=== PATIENT | male | born 1950 | race Two or more races ===

== ENCOUNTER 2016-10-29 01:10 | Inpatient (IN) | payer MEDICAID ==
[2016-10-29 01:50] VITALS: BP 116/72
[2016-10-29] MEDS: Sodium Chloride 0.9% 1,000 ML IV SCH ×2 (02:20→18:17)
[2016-10-29 06:25] LABS: HEMATOCRIT 34.5 % (39.0-49.0); HEMOGLOBIN 11.2 gm/dL (13.2-17.3); MEAN CELL VOLUME 83.7 fl (80-99); MEAN CORPUSCULAR HEMOGLOBIN 27.2 pg (26.0-30.0); MEAN CORPUSCULAR HGB CONC 32.5 pg (28.0-36.0); MEAN PLATELET VOLUME 8.2 fl; PLATELET COUNT 386 Th/cmm (150-400); RED BLOOD COUNT 4.12 Mil/cmm (4.30-5.70); RED CELL DISTRIBUTION WIDTH 16.4 % (11.5-20.0); WHITE BLOOD COUNT 10.7 Th/cmm (4.8-10.8)
[2016-10-29 07:14] LABS: ALB/GLOB RATIO 0.5 (1.0-1.8); ANION GAP 8.1 (7.0-16.0); BILIRUBIN,TOTAL 0.3 mg/dL (0.3-1.0); BUN/CREATININE RATIO 16.1; CALCIUM SERUM 10.2 mg/dL (8.6-10.3); CARBON DIOXIDE 23.1 mEq/L (21.0-31.0); CREATININE - SERUM 3.1 mg/dL (0.7-1.3); POTASSIUM SERUM 5.2 mEq/L (3.5-5.1)
[2016-10-29] MEDS ORDERED: Pneumococcal Vaccine 0.5 mL Vial IM ONE (09:00)
[2016-10-29] MEDS ORDERED: Influenza Vaccine 0.5 mL Syr IM ONE (09:00)
[2016-10-29 09:17] LABS: BAND NEUTROPHILE 4 % (0-10); NEUTROPHILS 89 % (40-80); PLATELET ESTIMATE ADEQUATE (NORMAL); PLATELET MORPHOLOGY NORMAL (NORMAL); TOTAL CELLS COUNTED 100
--- NOTE | 2016-10-29 11:59 | Diagnostic Imaging Report ---
CHEST X-RAY: AP view INDICATION: Pleural effusion COMPARISON: None FINDINGS: Large left effusion is seen with left lung infiltrates. Small right effusion is seen with ill-defined right upper lobe infiltrates. Cardiomegaly is noted. The osseous structures are intact. IMPRESSION: Large left effusion and left lung infiltrates and additional ill-defined right upper lung zone infiltrates. Small right effusion is also noted. Please correlate clinically as neoplastic process cannot be excluded. Short-term follow-up CT examination is recommended for further assessment. Cardiomegaly.
[2016-10-29] MEDS: INSULIN ASPART SLIDING SCALE 100 UNITS/ML UNIT SUBQ SCH ×3 (12:45→21:48)
--- NOTE | 2016-10-29 14:38 | History & Physical ---
CHIEF COMPLAINT: Shortness of breath. HISTORY OF PRESENT ILLNESS: This is the case of a 66-year-old male who came to the Emergency Room secondary to general weakness for 1 month and shortness of breath. The patient referred that he already lost 50 pounds and feel so week, reason why he came to Emergency Room for evaluation and treatment. The patient was went to [facility] in [place] and CT of the thorax was done and was found that the patient had pleural fusion with the mass in the left lung. The patient was transferred to his hospital for continued treatment. PAST MEDICAL HISTORY: The patient has past medical history of diabetes mellitus and hypertension. SOCIAL HISTORY: The patient referred he is tobacco and alcohol user. ALLERGIES: No known allergies. PAST SURGICAL HISTORY: None. FAMILY HISTORY: Noncontributory. REVIEW OF SYSTEMS: LUNGS: The patient referred shortness of breath. HEART: The patient denies chest pain. ABDOMEN: Unremarkable. EXTREMITIES: Unremarkable. NEUROMUSCULAR: The patient referred increased progressive general weakness. PHYSICAL EXAMINATION: GENERAL: Does reveal fairly nourished and developed male, awake, alert, oriented with some distress secondary to shortness of breath. HEENT: Head is normocephalic and atraumatic. EYES: Pupils are reactive to light. Nose: No evidence of nasal obstruction. Ears: No evidence of any discharge. Mouth: Fairly ____. LUNGS: No breathing sounds in the ____ left hemithorax. Normal breathing sounds in the right hemithorax. HEART: Regular rhythm. ABDOMEN: Soft, nontender. Bowel sounds present. EXTREMITIES: No edema. NEUROLOGICAL: The patient is awake, alert and oriented. Nerves 2-12 grossly intact. IMPRESSION: 1. Pleural effusion. 2. Pulmonary mass. 3. Diabetes mellitus. 4. Acute renal failure. 5. Hypertension. PLAN: 1. The patient will be admitted in the medical surgical floor. 2. IV normal saline. 3. Regular diet. 4. Consult with Dr. Higgins, Dr. Bañuelos and Dr. Covarrubias. 5. CBC and CMP at a.m. JOB# [id number]
[2016-10-29] MEDS: Albuterol Nebulizer 2.5mg/3mL HHN SCH ×3 (16:12→22:25)
[2016-10-29] MEDS: Cefepime 1 GM in Sodium Chloride 0.9% 100 ML IV SCH (18:13)
--- NOTE | 2016-10-29 18:33 | Admit Criteria Form ---
Admit Criteria Forms - Admit Criteria Diagnosis: PLEURAL EFFUSION Clinical Indications for Admission to Inpatient Care (Place 'X' for any and all applicable criteria): Admission is indicated for ANY ONE of the following (1)(2)(3): [ ]I. Pneumonia-related effusion requiring drainage as indicated by ANY ONE of the following [A]: [ ]a) Large pleural effusion (symptomatic or greater than one-half of hemithorax) [ ]b) Loculated effusion [ ]c) Pleural thickening [ ]d) Pleural fluid analysis results, including ANY ONE of the following: [ ]i) Positive Gram stain or culture for bacteria [ ]ii) Pus [ ]iii) pH less than 7.20 [X]II. Inpatient admission required rather than observation care (Also use Pleural Effusion: Observation Care criteria as appropriate) because of ANY ONE of the following: [ ]a) Hemodynamic instability that is severe or persistent [ ]b) Respiratory distress that is severe or persistent [ ]c) Complication of drainage (e.g., pneumothorax) that requires inpatient care [X]d) Etiology that requires inpatient care (e.g., pulmonary embolism , trauma) [ ]e) Severe pain requiring acute inpatient management [ ]f) Supplemental O2 or respiration drug for over 24 hrs that are performable only in an inpatient setting [ ]g) Chest tube placement with active evacuation (e.g., suction, drainage) [ ]h) Pulmonary artery catheter monitoring [ ]i) Epidural analgesia (8) [ ]j) Continuous IV infusion of anticoagulation, platelet inhibitor, vasoactive, or antiarrhythmic medication. [X]k) Other condition, treatment or monitoring requiring inpatient admission [ ]l) Immediate inpatient surgery [ ]III. Hemothorax [ ]IV. Empyema [ ]V. Pleural effusion with concomitant pneumothorax [ ]. Recurrent or malignant pleural effusion requiring pleurodesis (4) Extended stay beyond goal length of stay may be needed for (27)(28): [ ]a) Empyema or complicated parapneumonic effusion (24)(29) [ ]b) Malignant pleural effusion (4) [ ]c) Pleural effusion due to trauma or perforated esophagus [ ]d) Pleural effusion due to pulmonary embolism (30) [ ]e) Clinically significant re-expansion pulmonary edema [ ]f) Hemothorax [ ]g) Renal failure [ ]h) Trapped lung (e.g., benign or malignant thickened pleura preventing lung re-expansion) (31) [ ]i) Underlying etiology necessitates ongoing inpatient care (e.g., pneumonia, heart failure, malignancy) [ ]j) Complications of thoracentesis, thoracostomy tube, or pleural cath. placement The original [facility] content created by [employer] has been revised. The portions of the content which have been revised are identified through the use of italic text or in bold, and [facility] has neither reviewed nor approved the modified material. All other unmodified content is copyright [employer]. Please see references footnoted in the original [facility] edition 2016 Admit Criteria Met?: Yes
--- NOTE | 2016-10-29 23:21 | Consultation ---
HEMATOLOGY/ONCOLOGY CONSULTATION REFERRING PHYSICIAN: Dr. Sorto. REASON FOR CONSULTATION: Lung mass. HISTORY OF PRESENT ILLNESS: The patient is a 66-year-old male who has been feeling progressively weak with loss of balance and significant weight loss of 50 pounds in the past few months. The patient had an x-ray of the chest, which was normal, suspicious of neoplasm, therefore, I was asked to evaluate. The chest x-ray reported large left effusion, left lung infiltrates, and right upper lung infiltrates, small right effusion. SOCIAL HISTORY: The patient never and no children. Lives with sister. He is a smoker for more than 40 years. PAST MEDICAL HISTORY: Hypertension, diabetes, chronic kidney disease, and chronic lung disease. SURGICAL HISTORY: Hernia surgery. REVIEW OF SYSTEMS: Weight loss, no hemoptysis. PHYSICAL EXAMINATION: GENERAL: He is awake, chronically ill looking. VITAL SIGNS: Stable. HEENT: Atraumatic. NECK: No lymphadenopathy. CHEST: Scattered rhonchi. Decreased air entry on the left. ABDOMEN: Soft. EXTREMITIES: No edema. NERVOUS SYSTEM: Nonfocal. LABORATORY DATA: White count , hemoglobin 11.2, and platelets 386,000. Liver function is normal. Creatinine 3.1. Chest x-ray as mentioned above. ASSESSMENT: 1. Abnormalities on chest x-ray arising suspicion of neoplasm. I will obtain CT scan of the chest. 2. Diabetes, hypertension, chronic kidney disease, and chronic obstructive pulmonary disease. Her other consultants discussed with sister bedside. Further management will be addressed accordingly. Thank you, Dr. Sorto, for the opportunity to participate in the care of this interesting case for you. JOB# [id number]
[2016-10-30] MEDS: Albuterol Nebulizer 2.5mg/3mL HHN SCH ×6 (02:46→23:26)
[2016-10-30] MEDS: Cefepime 1 GM in Sodium Chloride 0.9% 100 ML IV SCH ×2 (03:34→14:59)
--- NOTE | 2016-10-30 06:09 | Consultation ---
ATTENDING PHYSICIAN: Adis Sorto M.D. BREAKER ENGINEER: Jacob Covarrubias M.D. REASON FOR CONSULTATION: Worsening kidney function and electrolyte imbalance and fluid management. HISTORY OF PRESENT ILLNESS: This is a 66-year-old male with past medical history of chronic kidney disease who was transferred from [place] to [facility] for further management. One month prior to admission, the patient developed weakness, easy fatigability as well as lack of energy. One week prior to admission, he gradually developed dyspnea on exertion. This was associated with dry cough, but no congestion. A few hours prior to admission, his respiratory status worsened after walking several steps. He then proceeded to [facility]. Chest x-ray revealed left lung mass with pleural effusion. CT scan of the chest showed left upper lobe consolidation/mass, 1.5 cm right apical nodule, [id number] left effusion, emphysema, as well as 1 centimeter precarinal lymph node. He has history of CKD diagnosed about 3 years ago per family. His BUN/creatinine today were 50/3.1. PAST MEDICAL HISTORY: 1. Chronic kidney disease. 2. Type 2 diabetes mellitus. 3. Essential hypertension. 4. Dyslipidemia. PAST SURGICAL HISTORY: Status post inguinal herniorrhaphy. CURRENT MEDICATIONS: Albuterol, cefepime, hydrocodone/APAP, aspart, pneumococcal vaccine and zolpidem. ALLERGIES: No known drug allergies. SOCIAL HISTORY: He did have a history of smoking approximately 1 pack a day for 30 years. He just quit about 5 days ago. He drinks alcoholic beverages on special events. 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 He has been exposed to several chemicals as well as solvents. He has not worn his facemask during the time that he was handling chemicals. FAMILY HISTORY: Significant for diabetes as well as breast cancer in 4 of his sisters. REVIEW OF SYSTEMS: CONSTITUTIONAL: He did complain of generalized weakness with a decline in his appetite. He had no fever and no chills. HEENT: No headaches and no dizziness. Wears glasses due to poor vision. Hearing acuity is also diminished. CARDIORESPIRATORY: He complained of dry cough. He also has dyspnea on exertion. No chest pain or palpitations. No diaphoresis. GASTROINTESTINAL: He had no nausea and vomiting, abdominal pain or cramping, hematemesis, melena, hematochezia and no diarrhea. ENDOCRINE: Has a history of diabetes. No thyroid abnormalities. He also has dyslipidemia. MUSCULOSKELETAL: Multiple joint arthritis. GENITOURINARY: History of chronic kidney disease. At this point, he does not have any dysuria or hematuria, no retention. HEMATOLOGIC: He has mild anemia. NEUROPSYCH: No syncopal episode or seizure activity. No diabetic neuropathy. PHYSICAL EXAMINATION: GENERAL: The patient is alert and comfortable. VITAL SIGNS: Blood pressure is 110/70, pulse 84 and temperature 97.3 degrees. SKIN: Good turgor, warm, no rash and no jaundice appreciated. HEENT: Head: Normocephalic and atraumatic. Eyes: Extraocular muscles intact. Pupils equal, round, reactive to light and accommodates, anicteric sclerae, pink conjunctivae. Nose: Midline nasal septum. Mouth: Moist mucosa with adequate dentition. NECK: Supple. No adenopathy, no thyromegaly and no bruits. Trachea palpated in the midline. CHEST AND CVS: S1 and S2. No rub or murmur nor gallop appreciated. Point of maximal impulse is in fifth intercostal space, left midclavicular line. No abdominal or femoral bruits appreciated. LUNGS: Equal expansion. No use of accessory muscles. No supraclavicular retractions, markedly diminished breath sounds, left side of the lung, no wheezes appreciated. ABDOMEN: Mildly globular and soft. Positive for bowel sounds. No bruits either diastolic or systolic. RECTAL: Lax sphincter tone. GENITOURINARY: Normal appearing male genitalia. MUSCULOSKELETAL: No effusions present in his joints with adequate range of motion. EXTREMITIES: No evidence of any edema or cyanosis nor clubbing with palpable femoral, popliteal and dorsalis pedis pulses. NEUROLOGIC: The patient is alert and verbal. Motor is 5/5. Cranial nerves 3-12 intact. Sensory: Intact. LABORATORY DATA: Sodium 132, potassium 5.2, chloride 106, bicarb 23, BUN 50, creatinine 3.5, glucose 210, calcium 10.2, albumin 2.3 and TSH 0.39. Hemoglobin A1c 8.5%. White count 10.7, hemoglobin 11.2, hematocrit 34.5, platelets 386 and polys 89%. IMPRESSION: 1. Chronic kidney disease. GFR of 21.7 mL per minute, stage IV. 2. Chronic kidney disease is secondary to diabetic polyneuropathy with some hypertensive nephrosclerosis. 3. Left upper lung mass/effusion/weight loss/cough/dyspnea on exertion/smoker with possibility of lung CA. 4. Type 2 diabetes mellitus. 5. Essential hypertension. 6. Dyslipidemia. PLAN: 1. Urinalysis, urine sodium, eosinophils and creatinine. 2. Renal ultrasound. 3. Follow up electrolytes. 4. Further workup of pulmonary. I have discussed my plans with family at bedside. Thank you Dr. Sorto for this consult. I will follow the patient closely with you. JOB# [id number]
[2016-10-30] MEDS: INSULIN ASPART SLIDING SCALE 100 UNITS/ML UNIT SUBQ SCH ×4 (06:38→21:22)
[2016-10-30 06:41] LABS: HEMOGLOBIN 10.1 gm/dL (13.2-17.3); MEAN CELL VOLUME 82.3 fl (80-99); MEAN CORPUSCULAR HEMOGLOBIN 27.7 pg (26.0-30.0); MEAN CORPUSCULAR HGB CONC 33.7 pg (28.0-36.0); MEAN PLATELET VOLUME 8.5 fl; PLATELET COUNT 361 Th/cmm (150-400); RED BLOOD COUNT 3.64 Mil/cmm (4.30-5.70); RED CELL DISTRIBUTION WIDTH 16.3 % (11.5-20.0)
[2016-10-30 07:08] LABS: ALB/GLOB RATIO 0.5 (1.0-1.8); ANION GAP 9.1 (7.0-16.0); BILIRUBIN,TOTAL 0.2 mg/dL (0.3-1.0); BUN/CREATININE RATIO 21.1; CALCIUM SERUM 8.7 mg/dL (8.6-10.3); CARBON DIOXIDE 22.8 mEq/L (21.0-31.0); CREATININE - SERUM 3.7 mg/dL (0.7-1.3); POTASSIUM SERUM 4.9 mEq/L (3.5-5.1)
[2016-10-30 07:21] LABS: HEMATOCRIT 29.9 % (39.0-49.0); WHITE BLOOD COUNT 15.5 Th/cmm (4.8-10.8)
--- NOTE | 2016-10-30 09:00 | General Progress Note ---
Subjective - Review of Systems Service Date: 10/30/16 Subjective: I am hungry Objective - Results Result Diagrams: 10/30/16 05:46 10/30/16 05:46 Recent Labs: Laboratory Last Values WBC 15.5 Th/cmm (4.8-10.8) H D 10/30/16 05:46 RBC 3.64 Mil/cmm (4.30-5.70) L 10/30/16 05:46 Hgb 10.1 gm/dL (13.2-17.3) L 10/30/16 05:46 Hct 29.9 % (39.0-49.0) L D 10/30/16 05:46 MCV 82.3 fl (80-99) 10/30/16 05:46 MCH 27.7 pg (26.0-30.0) 10/30/16 05:46 MCHC Differential 33.7 pg (28.0-36.0) 10/30/16 05:46 RDW 16.3 % (11.5-20.0) 10/30/16 05:46 Plt Count 361 Th/cmm (150-400) 10/30/16 05:46 MPV 8.5 fl 10/30/16 05:46 Band Neutrophils % 4 % (0-10) 10/29/16 06:00 Neutrophils (Manual) 89 % (40-80) H 10/29/16 06:00 Lymphocytes 7 % (20-50) L 10/29/16 06:00 Platelet Estimate ADEQUATE (NORMAL) 10/29/16 06:00 Platelet Morphology NORMAL (NORMAL) 10/29/16 06:00 RBC Morph Micro Appear NORMAL (NORMAL) 10/29/16 06:00 Sodium 132 mEq/L (136-145) L 10/30/16 05:46 Potassium 4.9 mEq/L (3.5-5.1) 10/30/16 05:46 Chloride 105 mEq/L (98-107) 10/30/16 05:46 Carbon Dioxide 22.8 mEq/L (21.0-31.0) 10/30/16 05:46 Anion Gap 9.1 (7.0-16.0) 10/30/16 05:46 BUN 78 mg/dL (7-25) H 10/30/16 05:46 Creatinine 3.7 mg/dL (0.7-1.3) H 10/30/16 05:46 Est GFR ( Amer) 21.4 ml/min (>90) 10/30/16 05:46 Est GFR (Non-Af Amer) 17.7 ml/min 10/30/16 05:46 BUN/Creatinine Ratio 21.1 10/30/16 05:46 Glucose 204 mg/dL (70-105) H 10/30/16 05:46 POC Glucose 232 MG/DL (70 - 105) H 10/30/16 05:58 Hemoglobin A1c % 8.5 % (4.0-6.0) H 10/29/16 06:00 Calcium 8.7 mg/dL (8.6-10.3) 10/30/16 05:46 Total Bilirubin 0.2 mg/dL (0.3-1.0) L 10/30/16 05:46 AST 10 U/L (13-39) L 10/30/16 05:46 ALT 10 U/L (7-52) 10/30/16 05:46 Alkaline Phosphatase 59 U/L (34-104) 10/30/16 05:46 Total Protein 6.2 gm/dL (6.0-8.3) 10/30/16 05:46 Albumin 2.0 gm/dL (4.2-5.5) L 10/30/16 05:46 Globulin 4.2 gm/dL 10/30/16 05:46 Albumin/Globulin Ratio 0.5 (1.0-1.8) L 10/30/16 05:46 TSH 0.39 uIU/ml (0.34-5.60) 10/29/16 06:00 - Physical Exam Vitals and I&O: Vital Signs Temp 98.4 F 10/30/16 04:00 Pulse 88 10/30/16 07:40 Resp 20 10/30/16 07:40 BP 95/57 10/30/16 04:00 Pulse Ox 94 10/30/16 07:40 Intake & Output 10/29/16 10/30/16 10/30/16 18:59 06:59 18:59 Intake Total 2500 460 Output Total 200 Balance 2500 260 Intake: Intake, IV Amount 1000 100 Cefepime 1 gm In Sodium 100 Chloride 0.9% 100 ml @ 100 mls/hr IV Q12H [facility] Rx #:[id number] Sodium Chloride 0.9% 1, 1000 000 ml @ 75 mls/hr IV . [id number] [facility] Rx#:[id number] Oral 1500 360 Output: Urine 200 Other: # Voids 4 1 Active Medications: Current Medications Acetaminophen/Hydrocodone Bitart ([place] 5mg/325mg) 1 tab PO Q6H PRN PRN Reason: Pain (Mild) Stop: 12/28/16 02:02 Albuterol Sulfate (Albuterol 2.5mg/3ml Neb Ud) 2.5 mg HHN Q4HRT [facility] Stop: 12/28/16 14:59 Last Admin: 10/30/16 07:40 Dose: 2.5 mg Sodium Chloride (Nacl 0.9%) 1,000 mls @ 75 mls/hr IV .[id number] [facility] Stop: 12/28/16 02:14 Last Admin: 10/29/16 18:17 Dose: 75 mls/hr Cefepime HCl 1 gm/ Sodium (Chloride) 100 mls @ 100 mls/hr IV Q12H [facility] Stop: 12/28/16 14:59 Last Admin: 10/30/16 03:34 Dose: 100 mls/hr Insulin Aspart (Novolog Insulin Sliding Scale) 0 units SUBQ ACHS BETHANY PRN Reason: Protocol Stop: 12/28/16 11:29 Last Admin: 10/30/16 06:38 Dose: 4 units Miscellaneous (Clinical Monitoring) 1 ea MC PRN PRN PRN Reason: RENAL DOSING Stop: 12/28/16 10:50 Zolpidem Tartrate (Ambien) 5 mg PO HS [facility] Stop: 12/28/16 20:59 Last Admin: 10/29/16 21:48 Dose: 5 mg General: Alert, Oriented x3, Cooperative, No acute distress HEENT: Atraumatic Neck: Supple Cardiovascular: Regular rate Lungs: Other (No air movement in left hemithorax.) Abdomen: Bowel sounds, Soft Extremities: Other (No edema) Neurological: Normal gait Skin: Other (Warm and dry) Psych/Mental Status: Mental status NL Assessment/Plan - Assessment Assessment: Patient is awake, alert, calm. CT guided biopsy was order, procedure is not done in this hospital. I will discuss case with Pulmonology and oncology. Today WBC went up. - Plan Plan: Due to the pleural effusion and WBC elevation, patient will be cover with Ceftriaxone. Awaiting Ct guided. biopsy
--- NOTE | 2016-10-30 09:09 | Consultation ---
Patient of Dr. Sorto. Thank you very much, Dr. Sorto for this consultation. HISTORY OF PRESENT ILLNESS: This is a 66-year-old male who presented to [facility] with cough, congestion, shortness of breath, and was found to have pneumonia and possible lung mass. The patient was transferred here for further care. The patient has not been to see for evaluation for 6 months according to the family. He has some renal problem that is being followed by renal doctor but otherwise he has diabetes and the staff has not been taking care of. He is a smoker and continues to smoke since age of 14 or 17. The patient appears to be doing a little bit better, he had less cough, less congestion. PAST MEDICAL HISTORY: As above. SOCIAL HISTORY: As above. PHYSICAL EXAMINATION: GENERAL: Awake, alert, not in acute distress. VITAL SIGNS: Temperature is 97.9, pulse 82, respiration 18, blood pressure 105/60, saturation 92% to 95% on 2 liters oxygen. HEENT: Atraumatic and normocephalic. Pupils are equal and reactive to light and accommodation. Ears, nose and throat normal. NECK: Supple. CHEST: There are rhonchi bilaterally, fair air entry. No wheezing. HEART: Regular Rate and rhythm. ABDOMEN: Soft, nontender. EXTREMITIES: No edema. DIAGNOSTIC DATA: He has got a CT from [place] showing left upper lobe consolidation of the mass and some pleural effusion as well. LABORATORY DATA: WBC is 10.7, hemoglobin 9.2, platelets are 386. Sodium is 132, potassium 5.2, BUN is 50, creatinine 3.1. IMPRESSION: This is a 66-year-old male with; 1. Chronic obstructive pulmonary disease exacerbation. 2. Pneumonia. 3. Possible malignancy, especially with the weight loss and the history of smoking, potential lung malignancy with metastasis. PLAN: 1. IV antibiotics. 2. Nebulized treatment. 3. IV Solu-Medrol. 4. We will have Radiology here, review the CT from [place] and decide if a CT-guided biopsy is technically possible. Case discussed in detail with the patient's family at bedside and I will follow the patient with you. The patient also will need a renal evaluation as well. JOB# [id number] [facility]
--- NOTE | 2016-10-30 09:16 | Diagnostic Imaging Report ---
CHEST X-RAY: AP view INDICATION: Shortness of breath COMPARISON: Chest x-ray 10/29/2016 FINDINGS: There is opacification of the majority left hemithorax with left lung infiltrates and additional right lower lung zone infiltrates. Ill defined right upper lobe infiltrates are seen with small right effusion. IMPRESSION: Persistent opacification of the majority of the left hemithorax which is due to combination of left effusion and left lung infiltrates. Additional right lung infiltrates are seen including ill-defined right upper lung zone infiltrates. Neoplastic process cannot be excluded. Recommend short-term follow-up including follow-up CT examination of the chest.
[2016-10-30 10:11] LABS: BAND NEUTROPHILE 2 % (0-10); NEUTROPHILS 87 % (40-80); PLATELET ESTIMATE ADEQUATE (NORMAL); PLATELET MORPHOLOGY NORMAL (NORMAL); TOTAL CELLS COUNTED 100
[2016-10-30] MEDS: Sodium Chloride 0.9% 1,000 ML IV SCH (10:56)
--- NOTE | 2016-10-30 13:11 | General Progress Note ---
Subjective - Review of Systems Service Date: 10/30/16 Subjective: mod sob. denied pain Objective - Results Result Diagrams: 10/30/16 05:46 10/30/16 05:46 Recent Labs: Laboratory Last Values WBC 15.5 Th/cmm (4.8-10.8) H D 10/30/16 05:46 RBC 3.64 Mil/cmm (4.30-5.70) L 10/30/16 05:46 Hgb 10.1 gm/dL (13.2-17.3) L 10/30/16 05:46 Hct 29.9 % (39.0-49.0) L D 10/30/16 05:46 MCV 82.3 fl (80-99) 10/30/16 05:46 MCH 27.7 pg (26.0-30.0) 10/30/16 05:46 MCHC Differential 33.7 pg (28.0-36.0) 10/30/16 05:46 RDW 16.3 % (11.5-20.0) 10/30/16 05:46 Plt Count 361 Th/cmm (150-400) 10/30/16 05:46 MPV 8.5 fl 10/30/16 05:46 Band Neutrophils % 2 % (0-10) 10/30/16 05:46 Neutrophils (Manual) 87 % (40-80) H 10/30/16 05:46 Lymphocytes 7 % (20-50) L 10/30/16 05:46 Monocytes 4 % (2-10) 10/30/16 05:46 Platelet Estimate ADEQUATE (NORMAL) 10/30/16 05:46 Platelet Morphology NORMAL (NORMAL) 10/30/16 05:46 RBC Morph Micro Appear NORMAL (NORMAL) 10/30/16 05:46 Sodium 132 mEq/L (136-145) L 10/30/16 05:46 Potassium 4.9 mEq/L (3.5-5.1) 10/30/16 05:46 Chloride 105 mEq/L (98-107) 10/30/16 05:46 Carbon Dioxide 22.8 mEq/L (21.0-31.0) 10/30/16 05:46 Anion Gap 9.1 (7.0-16.0) 10/30/16 05:46 BUN 78 mg/dL (7-25) H 10/30/16 05:46 Creatinine 3.7 mg/dL (0.7-1.3) H 10/30/16 05:46 Est GFR ( Amer) 21.4 ml/min (>90) 10/30/16 05:46 Est GFR (Non-Af Amer) 17.7 ml/min 10/30/16 05:46 BUN/Creatinine Ratio 21.1 10/30/16 05:46 Glucose 204 mg/dL (70-105) H 10/30/16 05:46 POC Glucose 262 MG/DL (70 - 105) H 10/30/16 11:04 Hemoglobin A1c % 8.5 % (4.0-6.0) H 10/29/16 06:00 Calcium 8.7 mg/dL (8.6-10.3) 10/30/16 05:46 Total Bilirubin 0.2 mg/dL (0.3-1.0) L 10/30/16 05:46 AST 10 U/L (13-39) L 10/30/16 05:46 ALT 10 U/L (7-52) 10/30/16 05:46 Alkaline Phosphatase 59 U/L (34-104) 10/30/16 05:46 Total Protein 6.2 gm/dL (6.0-8.3) 10/30/16 05:46 Albumin 2.0 gm/dL (4.2-5.5) L 10/30/16 05:46 Globulin 4.2 gm/dL 10/30/16 05:46 Albumin/Globulin Ratio 0.5 (1.0-1.8) L 10/30/16 05:46 TSH 0.39 uIU/ml (0.34-5.60) 10/29/16 06:00 - Physical Exam Vitals and I&O: Vital Signs Temp 98.6 F 10/30/16 12:30 Pulse 101 10/30/16 12:30 Resp 20 10/30/16 12:30 BP 103/59 10/30/16 12:30 Pulse Ox 95 10/30/16 12:30 Intake & Output 10/29/16 10/30/16 10/30/16 18:59 06:59 18:59 Intake Total 2500 460 1000 Output Total 200 Balance 2500 260 1000 Intake: Intake, IV Amount [phone] Cefepime 1 gm In Sodium 100 Chloride 0.9% 100 ml @ 100 mls/hr IV Q12H [facility] Rx #:[id number] Sodium Chloride 0.9% 1, 1000 1000 000 ml @ 75 mls/hr IV . [id number] [facility] Rx#:[id number] Oral 1500 360 Output: Urine 200 Other: # Voids 4 1 Active Medications: Current Medications Acetaminophen/Hydrocodone Bitart ([place] 5mg/325mg) 1 tab PO Q6H PRN PRN Reason: Pain (Mild) Stop: 12/28/16 02:02 Albuterol Sulfate (Albuterol 2.5mg/3ml Neb Ud) 2.5 mg HHN Q4HRT [facility] Stop: 12/28/16 14:59 Last Admin: 10/30/16 11:18 Dose: 2.5 mg Sodium Chloride (Nacl 0.9%) 1,000 mls @ 75 mls/hr IV .[id number] [facility] Stop: 12/28/16 02:14 Last Admin: 10/30/16 10:56 Dose: 75 mls/hr Cefepime HCl 1 gm/ Sodium (Chloride) 100 mls @ 100 mls/hr IV Q12H [facility] Stop: 12/28/16 14:59 Last Admin: 10/30/16 03:34 Dose: 100 mls/hr Insulin Aspart (Novolog Insulin Sliding Scale) 0 units SUBQ ACHS [facility] PRN Reason: Protocol Stop: 12/28/16 11:29 Last Admin: 10/30/16 11:40 Dose: 6 units Miscellaneous (Clinical Monitoring) 1 ea MC PRN PRN PRN Reason: RENAL DOSING Stop: 12/28/16 10:50 Zolpidem Tartrate (Ambien) 5 mg PO HS [facility] Stop: 12/28/16 20:59 Last Admin: 10/29/16 21:48 Dose: 5 mg General: Alert, Moderate distress HEENT: Atraumatic, Mucous membr. moist/pink Neck: Supple, +2 carotid pulse wo bruit Cardiovascular: Regular rate, Normal S1, Normal S2 Lungs: Other (decrease BS left lung field) Abdomen: Bowel sounds, Soft Extremities: no Edema Neurological: Sensation intact Skin: no Rash Psych/Mental Status: Mental status NL Assessment/Plan - Assessment Assessment: ckd DAVE lung mass type 2 dm w/ ckd ess htn w/ ckd dyslipidemia - Plan Plan: BUN/CR up to 78/3.7 continue gentle hydration awaiting urine workup ct scan pnd f/u electrolytes, cbc
[2016-10-31] MEDS: Albuterol Nebulizer 2.5mg/3mL HHN SCH ×6 (03:01→23:16)
[2016-10-31] MEDS: Cefepime 1 GM in Sodium Chloride 0.9% 100 ML IV SCH (03:36)
[2016-10-31] MEDS: Sodium Chloride 0.9% 1,000 ML IV SCH ×2 (03:37→22:03)
[2016-10-31 06:36] LABS: HEMATOCRIT 29.3 % (39.0-49.0); HEMOGLOBIN 9.7 gm/dL (13.2-17.3)
[2016-10-31] MEDS: INSULIN ASPART SLIDING SCALE 100 UNITS/ML UNIT SUBQ SCH ×4 (06:37→21:51)
[2016-10-31 06:46] LABS: ANION GAP 13.2 (7.0-16.0); BUN/CREATININE RATIO 22.2; CALCIUM SERUM 8.6 mg/dL (8.6-10.3); CARBON DIOXIDE 19.4 mEq/L (21.0-31.0); CREATININE - SERUM 3.2 mg/dL (0.7-1.3); POTASSIUM SERUM 4.6 mEq/L (3.5-5.1)
[2016-10-31 06:54] LABS: MEAN CELL VOLUME 83.1 fl (80-99); MEAN CORPUSCULAR HEMOGLOBIN 27.4 pg (26.0-30.0); MEAN PLATELET VOLUME 8.6 fl; PLATELET COUNT 294 Th/cmm (150-400); RED BLOOD COUNT 3.53 Mil/cmm (4.30-5.70); RED CELL DISTRIBUTION WIDTH 16.6 % (11.5-20.0)
[2016-10-31 07:05] LABS: WHITE BLOOD COUNT 11.5 Th/cmm (4.8-10.8)
--- NOTE | 2016-10-31 08:19 | General Progress Note ---
Subjective - Review of Systems Service Date: 10/31/16 Subjective: I am better Objective - Results Result Diagrams: 10/31/16 05:34 10/31/16 05:34 Recent Labs: Laboratory Last Values WBC 11.5 Th/cmm (4.8-10.8) H D 10/31/16 05:34 RBC 3.53 Mil/cmm (4.30-5.70) L 10/31/16 05:34 Hgb 9.7 gm/dL (13.2-17.3) L 10/31/16 05:34 Hct 29.3 % (39.0-49.0) L 10/31/16 05:34 MCV 83.1 fl (80-99) 10/31/16 05:34 MCH 27.4 pg (26.0-30.0) 10/31/16 05:34 MCHC Differential 33.0 pg (28.0-36.0) 10/31/16 05:34 RDW 16.6 % (11.5-20.0) 10/31/16 05:34 Plt Count 294 Th/cmm (150-400) 10/31/16 05:34 MPV 8.6 fl 10/31/16 05:34 Band Neutrophils % 2 % (0-10) 10/30/16 05:46 Neutrophils (Manual) 87 % (40-80) H 10/30/16 05:46 Lymphocytes 7 % (20-50) L 10/30/16 05:46 Monocytes 4 % (2-10) 10/30/16 05:46 Platelet Estimate ADEQUATE (NORMAL) 10/30/16 05:46 Platelet Morphology NORMAL (NORMAL) 10/30/16 05:46 RBC Morph Micro Appear NORMAL (NORMAL) 10/30/16 05:46 Sodium 135 mEq/L (136-145) L 10/31/16 05:34 Potassium 4.6 mEq/L (3.5-5.1) 10/31/16 05:34 Chloride 107 mEq/L (98-107) 10/31/16 05:34 Carbon Dioxide 19.4 mEq/L (21.0-31.0) L 10/31/16 05:34 Anion Gap 13.2 (7.0-16.0) 10/31/16 05:34 BUN 71 mg/dL (7-25) H 10/31/16 05:34 Creatinine 3.2 mg/dL (0.7-1.3) H 10/31/16 05:34 Est GFR ( Amer) 25.3 ml/min (>90) 10/31/16 05:34 Est GFR (Non-Af Amer) 20.9 ml/min 10/31/16 05:34 BUN/Creatinine Ratio 22.2 10/31/16 05:34 Glucose 221 mg/dL (70-105) H 10/31/16 05:34 POC Glucose 242 MG/DL (70 - 105) H 10/31/16 06:34 Hemoglobin A1c % 8.5 % (4.0-6.0) H 10/29/16 06:00 Calcium 8.6 mg/dL (8.6-10.3) 10/31/16 05:34 Total Bilirubin 0.2 mg/dL (0.3-1.0) L 10/30/16 05:46 AST 10 U/L (13-39) L 10/30/16 05:46 ALT 10 U/L (7-52) 10/30/16 05:46 Alkaline Phosphatase 59 U/L (34-104) 10/30/16 05:46 Total Protein 6.2 gm/dL (6.0-8.3) 10/30/16 05:46 Albumin 2.0 gm/dL (4.2-5.5) L 10/30/16 05:46 Globulin 4.2 gm/dL 10/30/16 05:46 Albumin/Globulin Ratio 0.5 (1.0-1.8) L 10/30/16 05:46 TSH 0.39 uIU/ml (0.34-5.60) 10/29/16 06:00 - Physical Exam Vitals and I&O: Vital Signs Temp 97.4 F 10/31/16 07:52 Pulse 58 10/31/16 07:52 Resp 17 10/31/16 07:52 BP 118/63 10/31/16 07:52 Pulse Ox 95 10/31/16 07:52 Intake & Output 10/30/16 10/31/16 10/31/16 18:59 06:59 18:59 Intake Total 2500 1340 Output Total 1200 800 Balance 1300 540 Intake: Intake, IV Amount 1000 1100 Cefepime 1 gm In Sodium 100 Chloride 0.9% 100 ml @ 100 mls/hr IV Q12H [facility] Rx #:[id number] Sodium Chloride 0.9% 1, 1000 1000 000 ml @ 75 mls/hr IV . [id number] [facility] Rx#:[id number] Oral 1500 240 Output: Urine 1200 800 Other: # Bowel Movements 1 Active Medications: Current Medications Acetaminophen/Hydrocodone Bitart ([place] 5mg/325mg) 1 tab PO Q6H PRN PRN Reason: Pain (Mild) Stop: 12/28/16 02:02 Albuterol Sulfate (Albuterol 2.5mg/3ml Neb Ud) 2.5 mg HHN Q4HRT [facility] Stop: 12/28/16 14:59 Last Admin: 10/31/16 03:01 Dose: 2.5 mg Docusate Sodium (Colace) 100 mg PO BID [facility] Stop: 12/30/16 08:59 Sodium Chloride (Nacl 0.9%) 1,000 mls @ 75 mls/hr IV .[id number] [facility] Stop: 12/28/16 02:14 Last Admin: 10/31/16 03:37 Dose: 75 mls/hr Cefepime HCl 1 gm/ Sodium (Chloride) 100 mls @ 100 mls/hr IV Q12H [facility] Stop: 12/28/16 14:59 Last Admin: 10/31/16 03:36 Dose: 100 mls/hr Insulin Aspart (Novolog Insulin Sliding Scale) 0 units SUBQ ACHS [facility] PRN Reason: Protocol Stop: 12/28/16 11:29 Last Admin: 10/31/16 06:37 Dose: 4 units Miscellaneous (Clinical Monitoring) 1 ea MC PRN PRN PRN Reason: RENAL DOSING Stop: 12/28/16 10:50 Zolpidem Tartrate (Ambien) 5 mg PO HS [facility] Stop: 12/28/16 20:59 Last Admin: 10/30/16 21:22 Dose: 5 mg General: Alert, Oriented x3, Cooperative, No acute distress HEENT: Atraumatic Neck: Supple Cardiovascular: Regular rate Lungs: Other (No air movement in left hemithorax) Abdomen: Bowel sounds, Soft Extremities: Other (No edema) Neurological: Normal gait Skin: Other (Warm and dry) Psych/Mental Status: Mental status NL Assessment/Plan - Assessment Assessment: Patient is awake, alert, calm. US guiede Thoracentesis was order, Today WBC improved. Case discussed with Pulmonology and family - Plan Plan: US guided thoracocentesis will be done today. Will continue same management.
[2016-10-31 08:20] LABS: INR 1.15 (0.5-1.4); PROTHROMBIN TIME (TEST) 11.5 SECONDS (9.5-11.5)
[2016-10-31 10:32] LABS: EOSINOPHIL 0 % (0-5); NEUTROPHILS 92 % (40-80); PLATELET ESTIMATE ADEQUATE (NORMAL); PLATELET MORPHOLOGY NORMAL (NORMAL); TOTAL CELLS COUNTED 100
--- NOTE | 2016-10-31 14:27 | General Progress Note ---
Subjective - Review of Systems Service Date: 10/31/16 Subjective: more comfortable, denied pain Objective - Results Result Diagrams: 10/31/16 05:34 10/31/16 05:34 Recent Labs: Laboratory Last Values WBC 11.5 Th/cmm (4.8-10.8) H D 10/31/16 05:34 RBC 3.53 Mil/cmm (4.30-5.70) L 10/31/16 05:34 Hgb 9.7 gm/dL (13.2-17.3) L 10/31/16 05:34 Hct 29.3 % (39.0-49.0) L 10/31/16 05:34 MCV 83.1 fl (80-99) 10/31/16 05:34 MCH 27.4 pg (26.0-30.0) 10/31/16 05:34 MCHC Differential 33.0 pg (28.0-36.0) 10/31/16 05:34 RDW 16.6 % (11.5-20.0) 10/31/16 05:34 Plt Count 294 Th/cmm (150-400) 10/31/16 05:34 MPV 8.6 fl 10/31/16 05:34 Band Neutrophils % 2 % (0-10) 10/30/16 05:46 Neutrophils (Manual) 92 % (40-80) H 10/31/16 05:34 Lymphocytes 6 % (20-50) L 10/31/16 05:34 Monocytes 2 % (2-10) 10/31/16 05:34 Eosinophils 0 % (0-5) 10/31/16 05:34 Platelet Estimate ADEQUATE (NORMAL) 10/31/16 05:34 Platelet Morphology NORMAL (NORMAL) 10/31/16 05:34 RBC Morph Micro Appear NORMAL (NORMAL) 10/31/16 05:34 PT 11.5 SECONDS (9.5-11.5) 10/31/16 05:34 INR 1.15 (0.5-1.4) 10/31/16 05:34 Sodium 135 mEq/L (136-145) L 10/31/16 05:34 Potassium 4.6 mEq/L (3.5-5.1) 10/31/16 05:34 Chloride 107 mEq/L (98-107) 10/31/16 05:34 Carbon Dioxide 19.4 mEq/L (21.0-31.0) L 10/31/16 05:34 Anion Gap 13.2 (7.0-16.0) 10/31/16 05:34 BUN 71 mg/dL (7-25) H 10/31/16 05:34 Creatinine 3.2 mg/dL (0.7-1.3) H 10/31/16 05:34 Est GFR ( Amer) 25.3 ml/min (>90) 10/31/16 05:34 Est GFR (Non-Af Amer) 20.9 ml/min 10/31/16 05:34 BUN/Creatinine Ratio 22.2 10/31/16 05:34 Glucose 221 mg/dL (70-105) H 10/31/16 05:34 POC Glucose 123 MG/DL (70 - 105) H 10/31/16 11:25 Hemoglobin A1c % 8.5 % (4.0-6.0) H 10/29/16 06:00 Calcium 8.6 mg/dL (8.6-10.3) 10/31/16 05:34 Total Bilirubin 0.2 mg/dL (0.3-1.0) L 10/30/16 05:46 AST 10 U/L (13-39) L 10/30/16 05:46 ALT 10 U/L (7-52) 10/30/16 05:46 Alkaline Phosphatase 59 U/L (34-104) 10/30/16 05:46 Total Protein 6.2 gm/dL (6.0-8.3) 10/30/16 05:46 Albumin 2.0 gm/dL (4.2-5.5) L 10/30/16 05:46 Globulin 4.2 gm/dL 10/30/16 05:46 Albumin/Globulin Ratio 0.5 (1.0-1.8) L 10/30/16 05:46 TSH 0.39 uIU/ml (0.34-5.60) 10/29/16 06:00 - Physical Exam Vitals and I&O: Vital Signs Temp 98.6 F 10/31/16 12:34 Pulse 92 10/31/16 12:34 Resp 18 10/31/16 12:34 BP 110/63 10/31/16 12:34 Pulse Ox 96 10/31/16 12:34 Intake & Output 10/30/16 10/31/16 10/31/16 18:59 06:59 18:59 Intake Total 2500 1340 Output Total 1200 800 Balance 1300 540 Intake: Intake, IV Amount 1000 1100 Cefepime 1 gm In Sodium 100 Chloride 0.9% 100 ml @ 100 mls/hr IV Q12H [facility] Rx #:[id number] Sodium Chloride 0.9% 1, 1000 1000 000 ml @ 75 mls/hr IV . [id number] [facility] Rx#:[id number] Oral 1500 240 Output: Urine 1200 800 Other: # Bowel Movements 1 Active Medications: Current Medications Acetaminophen/Hydrocodone Bitart ([place] 5mg/325mg) 1 tab PO Q6H PRN PRN Reason: Pain (Mild) Stop: 12/28/16 02:02 Albuterol Sulfate (Albuterol 2.5mg/3ml Neb Ud) 2.5 mg HHN Q4HRT [facility] Stop: 12/28/16 14:59 Last Admin: 10/31/16 09:45 Dose: 2.5 mg Docusate Sodium (Colace) 100 mg PO BID [facility] Stop: 12/30/16 08:59 Last Admin: 10/31/16 13:03 Dose: Not Given Sodium Chloride (Nacl 0.9%) 1,000 mls @ 75 mls/hr IV .[id number] [facility] Stop: 12/28/16 02:14 Last Admin: 10/31/16 03:37 Dose: 75 mls/hr Cefepime HCl 0.5 gm/ Dextrose 50 mls @ 100 mls/hr IV Q24H [facility] Stop: 12/30/16 20:59 Insulin Aspart (Novolog Insulin Sliding Scale) 0 units SUBQ ACHS [facility] PRN Reason: Protocol Stop: 12/28/16 11:29 Last Admin: 10/31/16 11:30 Dose: Not Given Miscellaneous (Clinical Monitoring) 1 ea MC PRN PRN PRN Reason: RENAL DOSING CEFEPIME Stop: 12/28/16 10:50 Zolpidem Tartrate (Ambien) 5 mg PO HS [facility] Stop: 12/28/16 20:59 Last Admin: 10/30/16 21:22 Dose: 5 mg General: Alert, Cooperative HEENT: Atraumatic, Mucous membr. 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
[2016-11-01] MEDS: Albuterol Nebulizer 2.5mg/3mL HHN SCH ×6 (02:59→23:03)
[2016-11-01] MEDS: INSULIN ASPART SLIDING SCALE 100 UNITS/ML UNIT SUBQ SCH ×4 (07:12→21:31)
[2016-11-01 07:13] LABS: HEMATOCRIT 29.5 % (39.0-49.0); HEMOGLOBIN 9.9 gm/dL (13.2-17.3); MEAN CELL VOLUME 82.4 fl (80-99); MEAN CORPUSCULAR HEMOGLOBIN 27.6 pg (26.0-30.0); MEAN CORPUSCULAR HGB CONC 33.5 pg (28.0-36.0); MEAN PLATELET VOLUME 8.8 fl; PLATELET COUNT 272 Th/cmm (150-400); RED BLOOD COUNT 3.58 Mil/cmm (4.30-5.70); RED CELL DISTRIBUTION WIDTH 16.8 % (11.5-20.0)
[2016-11-01 07:47] LABS: ANION GAP 9.5 (7.0-16.0); BUN/CREATININE RATIO 22.5; CALCIUM SERUM 8.8 mg/dL (8.6-10.3); CARBON DIOXIDE 19.5 mEq/L (21.0-31.0); CREATININE - SERUM 2.4 mg/dL (0.7-1.3)
--- NOTE | 2016-11-01 08:27 | General Progress Note ---
Subjective - Review of Systems Service Date: 11/01/16 Subjective: I am better Objective - Results Result Diagrams: 11/01/16 05:41 11/01/16 05:41 Recent Labs: Laboratory Last Values WBC 12.0 Th/cmm (4.8-10.8) H 11/01/16 05:41 RBC 3.58 Mil/cmm (4.30-5.70) L 11/01/16 05:41 Hgb 9.9 gm/dL (13.2-17.3) L 11/01/16 05:41 Hct 29.5 % (39.0-49.0) L 11/01/16 05:41 MCV 82.4 fl (80-99) 11/01/16 05:41 MCH 27.6 pg (26.0-30.0) 11/01/16 05:41 MCHC Differential 33.5 pg (28.0-36.0) 11/01/16 05:41 RDW 16.8 % (11.5-20.0) 11/01/16 05:41 Plt Count 272 Th/cmm (150-400) 11/01/16 05:41 MPV 8.8 fl 11/01/16 05:41 Band Neutrophils % 2 % (0-10) 10/30/16 05:46 Neutrophils (Manual) 92 % (40-80) H 10/31/16 05:34 Lymphocytes 6 % (20-50) L 10/31/16 05:34 Monocytes 2 % (2-10) 10/31/16 05:34 Eosinophils 0 % (0-5) 10/31/16 05:34 Platelet Estimate ADEQUATE (NORMAL) 10/31/16 05:34 Platelet Morphology NORMAL (NORMAL) 10/31/16 05:34 RBC Morph Micro Appear NORMAL (NORMAL) 10/31/16 05:34 PT 11.5 SECONDS (9.5-11.5) 10/31/16 05:34 INR 1.15 (0.5-1.4) 10/31/16 05:34 Sodium 137 mEq/L (136-145) 11/01/16 05:41 Potassium 4.0 mEq/L (3.5-5.1) 11/01/16 05:41 Chloride 112 mEq/L (98-107) H 11/01/16 05:41 Carbon Dioxide 19.5 mEq/L (21.0-31.0) L 11/01/16 05:41 Anion Gap 9.5 (7.0-16.0) 11/01/16 05:41 BUN 54 mg/dL (7-25) H 11/01/16 05:41 Creatinine 2.4 mg/dL (0.7-1.3) H 11/01/16 05:41 Est GFR ( Amer) 35.2 ml/min (>90) 11/01/16 05:41 Est GFR (Non-Af Amer) 29.1 ml/min 11/01/16 05:41 BUN/Creatinine Ratio 22.5 11/01/16 05:41 Glucose 237 mg/dL (70-105) H 11/01/16 05:41 POC Glucose 221 MG/DL (70 - 105) H 11/01/16 06:41 Hemoglobin A1c % 8.5 % (4.0-6.0) H 10/29/16 06:00 Calcium 8.8 mg/dL (8.6-10.3) 11/01/16 05:41 Total Bilirubin 0.2 mg/dL (0.3-1.0) L 10/30/16 05:46 AST 10 U/L (13-39) L 10/30/16 05:46 ALT 10 U/L (7-52) 10/30/16 05:46 Alkaline Phosphatase 59 U/L (34-104) 10/30/16 05:46 Total Protein 6.2 gm/dL (6.0-8.3) 10/30/16 05:46 Albumin 2.0 gm/dL (4.2-5.5) L 10/30/16 05:46 Globulin 4.2 gm/dL 10/30/16 05:46 Albumin/Globulin Ratio 0.5 (1.0-1.8) L 10/30/16 05:46 TSH 0.39 uIU/ml (0.34-5.60) 10/29/16 06:00 - Physical Exam Vitals and I&O: Vital Signs Temp 99 F 11/01/16 04:00 Pulse 118 11/01/16 04:00 Resp 19 11/01/16 04:00 BP 115/65 11/01/16 04:00 Pulse Ox 92 11/01/16 04:00 Intake & Output 10/31/16 11/01/16 11/01/16 18:59 06:59 18:59 Intake Total 1000 50 Balance 1000 50 Intake: Intake, IV Amount 1000 50 Cefepime 0.5 gm In 50 Dextrose 5% 50 ml @ 100 mls/hr IV Q24H [facility] Rx#: [id number] Sodium Chloride 0.9% 1, 1000 000 ml @ 75 mls/hr IV . [id number] [facility] Rx#:[id number] Active Medications: Current Medications Acetaminophen/Hydrocodone Bitart ([place] 5mg/325mg) 1 tab PO Q6H PRN PRN Reason: Pain (Mild) Stop: 12/28/16 02:02 Albuterol Sulfate (Albuterol 2.5mg/3ml Neb Ud) 2.5 mg HHN Q4HRT [facility] Stop: 12/28/16 14:59 Last Admin: 11/01/16 02:59 Dose: 2.5 mg Docusate Sodium (Colace) 100 mg PO BID [facility] Stop: 12/30/16 08:59 Last Admin: 10/31/16 17:18 Dose: 100 mg Sodium Chloride (Nacl 0.9%) 1,000 mls @ 75 mls/hr IV .[id number] [facility] Stop: 12/28/16 02:14 Last Admin: 10/31/16 22:03 Dose: 75 mls/hr Cefepime HCl 0.5 gm/ Dextrose 50 mls @ 100 mls/hr IV Q24H [facility] Stop: 12/30/16 20:59 Last Infusion: 10/31/16 23:01 Dose: Infused Insulin Aspart (Novolog Insulin Sliding Scale) 0 units SUBQ ACHS [facility] PRN Reason: Protocol Stop: 12/28/16 11:29 Last Admin: 11/01/16 07:12 Dose: 4 units Miscellaneous (Clinical Monitoring) 1 ea MC PRN PRN PRN Reason: RENAL DOSING CEFEPIME Stop: 12/28/16 10:50 Zolpidem Tartrate (Ambien) 5 mg PO HS [facility] Stop: 12/28/16 20:59 Last Admin: 10/31/16 21:49 Dose: 5 mg General: Alert, Oriented x3, Cooperative, No acute distress HEENT: Atraumatic Neck: Supple Cardiovascular: Regular rate Lungs: Other (Improved air entry in left hemithorax) Abdomen: Bowel sounds, Soft Extremities: Other (No edema) Neurological: Normal gait Skin: Other (Warm and dry) Psych/Mental Status: Mental status NL Assessment/Plan - Assessment Assessment: Patient is awake, alert, calm. US guided Thoracentesis was done, Today WBC increased, Creatinine improving. - Plan Plan: US guided thoracocentesis was done. Will continue monitoring
--- NOTE | 2016-11-01 09:31 | Diagnostic Imaging Report ---
Portable chest x-ray HISTORY: Shortness of breath, status post thoracentesis Compared with the prior exam of 10/30/2016, there remains opacification of the majority of the left hemithorax with volume loss. Hazy infiltrate remains within the right lung. No pneumothorax is seen. IMPRESSION: 1. Little change in the cardiopulmonary status as noted above.
--- NOTE | 2016-11-01 09:33 | Diagnostic Imaging Report ---
Thoracentesis (ultrasound-guided), left side HISTORY: Pleural effusion Using ultrasound guidance and sterile technique, 300 mL of somewhat red-tinged pleural fluid was aspirated from the left hemithorax. The patient tolerated the procedure with no immediate apparent clinical complications. IMPRESSION: 1. Thoracentesis as noted above
[2016-11-01 12:25] LABS: BAND NEUTROPHILE 1 % (0-10); EOSINOPHIL 1 % (0-5); NEUTROPHILS 87 % (40-80); PLATELET ESTIMATE ADEQUATE (NORMAL); PLATELET MORPHOLOGY NORMAL (NORMAL); TOTAL CELLS COUNTED 100
[2016-11-01] MEDS ORDERED: Sodium Chloride 0.9% 1,000 ML IV SCH (15:36)
--- NOTE | 2016-11-01 15:39 | General Progress Note ---
Subjective - Review of Systems Service Date: 11/01/16 Subjective: more tachypneic, denied pain Objective - Results Result Diagrams: 11/01/16 05:41 11/01/16 05:41 Recent Labs: Laboratory Last Values WBC 12.0 Th/cmm (4.8-10.8) H 11/01/16 05:41 RBC 3.58 Mil/cmm (4.30-5.70) L 11/01/16 05:41 Hgb 9.9 gm/dL (13.2-17.3) L 11/01/16 05:41 Hct 29.5 % (39.0-49.0) L 11/01/16 05:41 MCV 82.4 fl (80-99) 11/01/16 05:41 MCH 27.6 pg (26.0-30.0) 11/01/16 05:41 MCHC Differential 33.5 pg (28.0-36.0) 11/01/16 05:41 RDW 16.8 % (11.5-20.0) 11/01/16 05:41 Plt Count 272 Th/cmm (150-400) 11/01/16 05:41 MPV 8.8 fl 11/01/16 05:41 Band Neutrophils % 1 % (0-10) 11/01/16 05:41 Neutrophils (Manual) 87 % (40-80) H 11/01/16 05:41 Lymphocytes 5 % (20-50) L 11/01/16 05:41 Monocytes 6 % (2-10) 11/01/16 05:41 Eosinophils 1 % (0-5) 11/01/16 05:41 Platelet Estimate ADEQUATE (NORMAL) 11/01/16 05:41 Platelet Morphology NORMAL (NORMAL) 11/01/16 05:41 RBC Morph Micro Appear NORMAL (NORMAL) 11/01/16 05:41 PT 11.5 SECONDS (9.5-11.5) 10/31/16 05:34 INR 1.15 (0.5-1.4) 10/31/16 05:34 Sodium 137 mEq/L (136-145) 11/01/16 05:41 Potassium 4.0 mEq/L (3.5-5.1) 11/01/16 05:41 Chloride 112 mEq/L (98-107) H 11/01/16 05:41 Carbon Dioxide 19.5 mEq/L (21.0-31.0) L 11/01/16 05:41 Anion Gap 9.5 (7.0-16.0) 11/01/16 05:41 BUN 54 mg/dL (7-25) H 11/01/16 05:41 Creatinine 2.4 mg/dL (0.7-1.3) H 11/01/16 05:41 Est GFR ( Amer) 35.2 ml/min (>90) 11/01/16 05:41 Est GFR (Non-Af Amer) 29.1 ml/min 11/01/16 05:41 BUN/Creatinine Ratio 22.5 11/01/16 05:41 Glucose 237 mg/dL (70-105) H 11/01/16 05:41 POC Glucose 221 MG/DL (70 - 105) H 11/01/16 06:41 Hemoglobin A1c % 8.5 % (4.0-6.0) H 10/29/16 06:00 Calcium 8.8 mg/dL (8.6-10.3) 11/01/16 05:41 Total Bilirubin 0.2 mg/dL (0.3-1.0) L 10/30/16 05:46 AST 10 U/L (13-39) L 10/30/16 05:46 ALT 10 U/L (7-52) 10/30/16 05:46 Alkaline Phosphatase 59 U/L (34-104) 10/30/16 05:46 Total Protein 6.2 gm/dL (6.0-8.3) 10/30/16 05:46 Albumin 2.0 gm/dL (4.2-5.5) L 10/30/16 05:46 Globulin 4.2 gm/dL 10/30/16 05:46 Albumin/Globulin Ratio 0.5 (1.0-1.8) L 10/30/16 05:46 TSH 0.39 uIU/ml (0.34-5.60) 10/29/16 06:00 - Physical Exam Vitals and I&O: Vital Signs Temp 97.9 F 11/01/16 08:00 Pulse 82 11/01/16 11:45 Resp 20 11/01/16 11:45 BP 120/75 11/01/16 08:00 Pulse Ox 95 02/11/17 11:45 Intake & Output 10/31/16 11/01/16 11/01/16 18:59 06:59 18:59 Intake Total 1000 50 240 Balance 1000 50 240 Intake: Intake, IV Amount 1000 50 Cefepime 0.5 gm In 50 Dextrose 5% 50 ml @ 100 mls/hr IV Q24H [facility] Rx#: [id number] Sodium Chloride 0.9% 1, 1000 000 ml @ 75 mls/hr IV . [id number] [facility] Rx#:[id number] Oral 240 Active Medications: Current Medications Acetaminophen/Hydrocodone Bitart ([place] 5mg/325mg) 1 tab PO Q6H PRN PRN Reason: Pain (Mild) Stop: 12/28/16 02:02 Albuterol Sulfate (Albuterol 2.5mg/3ml Neb Ud) 2.5 mg HHN Q4HRT [facility] Stop: 12/28/16 14:59 Last Admin: 11/01/16 15:19 Dose: 2.5 mg Docusate Sodium (Colace) 100 mg PO BID [facility] Stop: 12/30/16 08:59 Last Admin: 11/01/16 09:35 Dose: 100 mg Cefepime HCl 0.5 gm/ Dextrose 50 mls @ 100 mls/hr IV Q24H [facility] Stop: 12/30/16 20:59 Last Infusion: 10/31/16 23:01 Dose: Infused Sodium Chloride (Nacl 0.9%) 1,000 mls @ 40 mls/hr IV .Q24H [facility] Stop: 12/28/16 02:14 Insulin Aspart (Novolog Insulin Sliding Scale) 0 units SUBQ ACHS BETHANY PRN Reason: Protocol Stop: 12/28/16 11:29 Last Admin: 11/01/16 12:13 Dose: 4 units Miscellaneous (Clinical Monitoring) 1 ea MC PRN PRN PRN Reason: RENAL DOSING CEFEPIME Stop: 12/28/16 10:50 Zolpidem Tartrate (Ambien) 5 mg PO HS [facility] Stop: 12/28/16 20:59 Last Admin: 10/31/16 21:49 Dose: 5 mg General: Alert, No acute distress HEENT: Atraumatic, Mucous membr. 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
[2016-11-01 18:19] LABS: BF NEUTROPHILES 14 %
[2016-11-02] MEDS: Albuterol Nebulizer 2.5mg/3mL HHN SCH ×6 (02:53→22:58)
[2016-11-02 06:26] LABS: HEMATOCRIT 30.2 % (39.0-49.0); HEMOGLOBIN 10.1 gm/dL (13.2-17.3); MEAN CELL VOLUME 83.3 fl (80-99); MEAN CORPUSCULAR HEMOGLOBIN 27.9 pg (26.0-30.0); RED BLOOD COUNT 3.62 Mil/cmm (4.30-5.70); WHITE BLOOD COUNT 13.6 Th/cmm (4.8-10.8)
[2016-11-02 06:27] LABS: MEAN CORPUSCULAR HGB CONC 33.4 pg (28.0-36.0); MEAN PLATELET VOLUME 8.7 fl; PLATELET COUNT 284 Th/cmm (150-400); RED CELL DISTRIBUTION WIDTH 16.6 % (11.5-20.0)
[2016-11-02 06:59] LABS: ALB/GLOB RATIO 0.5 (1.0-1.8); ANION GAP 8.9 (7.0-16.0); BILIRUBIN,TOTAL 0.3 mg/dL (0.3-1.0); CALCIUM SERUM 9.3 mg/dL (8.6-10.3); CARBON DIOXIDE 20.9 mEq/L (21.0-31.0); CREATININE - SERUM 2.1 mg/dL (0.7-1.3); POTASSIUM SERUM 3.8 mEq/L (3.5-5.1)
[2016-11-02] MEDS: INSULIN ASPART SLIDING SCALE 100 UNITS/ML UNIT SUBQ SCH ×4 (07:10→22:10)
--- NOTE | 2016-11-02 09:38 | General Progress Note ---
Subjective - Review of Systems Service Date: 11/02/16 Subjective: I am better Objective - Results Result Diagrams: 11/02/16 05:32 11/02/16 05:32 Recent Labs: Laboratory Last Values WBC 13.6 Th/cmm (4.8-10.8) H 11/02/16 05:32 RBC 3.62 Mil/cmm (4.30-5.70) L 11/02/16 05:32 Hgb 10.1 gm/dL (13.2-17.3) L 11/02/16 05:32 Hct 30.2 % (39.0-49.0) L 11/02/16 05:32 MCV 83.3 fl (80-99) 11/02/16 05:32 MCH 27.9 pg (26.0-30.0) 11/02/16 05:32 MCHC Differential 33.4 pg (28.0-36.0) 11/02/16 05:32 RDW 16.6 % (11.5-20.0) 11/02/16 05:32 Plt Count 284 Th/cmm (150-400) 11/02/16 05:32 MPV 8.7 fl 11/02/16 05:32 Band Neutrophils % 1 % (0-10) 11/01/16 05:41 Neutrophils (Manual) 87 % (40-80) H 11/01/16 05:41 Lymphocytes 5 % (20-50) L 11/01/16 05:41 Monocytes 6 % (2-10) 11/01/16 05:41 Eosinophils 1 % (0-5) 11/01/16 05:41 Platelet Estimate ADEQUATE (NORMAL) 11/01/16 05:41 Platelet Morphology NORMAL (NORMAL) 11/01/16 05:41 RBC Morph Micro Appear NORMAL (NORMAL) 11/01/16 05:41 PT 11.5 SECONDS (9.5-11.5) 10/31/16 05:34 INR 1.15 (0.5-1.4) 10/31/16 05:34 Sodium 139 mEq/L (136-145) 11/02/16 05:32 Potassium 3.8 mEq/L (3.5-5.1) 11/02/16 05:32 Chloride 113 mEq/L (98-107) H 11/02/16 05:32 Carbon Dioxide 20.9 mEq/L (21.0-31.0) L 11/02/16 05:32 Anion Gap 8.9 (7.0-16.0) 11/02/16 05:32 BUN 42 mg/dL (7-25) H 11/02/16 05:32 Creatinine 2.1 mg/dL (0.7-1.3) H 11/02/16 05:32 Est GFR ( Amer) 41.1 ml/min (>90) 11/02/16 05:32 Est GFR (Non-Af Amer) 34.0 ml/min 11/02/16 05:32 BUN/Creatinine Ratio 20.0 11/02/16 05:32 Glucose 194 mg/dL (70-105) H 11/02/16 05:32 POC Glucose 177 MG/DL (70 - 105) H 11/02/16 07:06 Hemoglobin A1c % 8.5 % (4.0-6.0) H 10/29/16 06:00 Calcium 9.3 mg/dL (8.6-10.3) 11/02/16 05:32 Total Bilirubin 0.3 mg/dL (0.3-1.0) 11/02/16 05:32 AST 9 U/L (13-39) L 11/02/16 05:32 ALT 12 U/L (7-52) 11/02/16 05:32 Alkaline Phosphatase 62 U/L (34-104) 11/02/16 05:32 Total Protein 6.4 gm/dL (6.0-8.3) 11/02/16 05:32 Albumin 2.0 gm/dL (4.2-5.5) L 11/02/16 05:32 Globulin 4.4 gm/dL 11/02/16 05:32 Albumin/Globulin Ratio 0.5 (1.0-1.8) L 11/02/16 05:32 TSH 0.39 uIU/ml (0.34-5.60) 10/29/16 06:00 Fluid Source THROACENTHESIS 10/31/16 17:10 Fluid Color YELLOW 10/31/16 17:10 Fluid Appearance HAZY 10/31/16 17:10 Fluid WBC 832 /cumm 10/31/16 17:10 Fluid RBC 98121 /cumm 10/31/16 17:10 Fluid Neutrophils 14 % 10/31/16 17:10 Fluid Lymphocytes 81 % 10/31/16 17:10 Fluid Monocytes 5 % 10/31/16 17:10 Fluid Glucose 193.0 mg/dL 10/31/16 17:10 Fluid Total Protein 3.1 g/dL 10/31/16 17:10 - Physical Exam Vitals and I&O: Vital Signs Temp 98.4 F 11/01/16 20:00 Pulse 94 11/02/16 03:45 Resp 17 11/02/16 03:45 BP 164/87 11/01/16 20:00 Pulse Ox 93 11/02/16 03:45 Intake & Output 11/01/16 11/02/16 11/02/16 18:59 06:59 18:59 Intake Total 240 100 Balance 240 100 Intake: Oral 240 100 Active Medications: Current Medications Acetaminophen/Hydrocodone Bitart ([place] 5mg/325mg) 1 tab PO Q6H PRN PRN Reason: Pain (Mild) Stop: 12/28/16 02:02 Albuterol Sulfate (Albuterol 2.5mg/3ml Neb Ud) 2.5 mg HHN Q4HRT [facility] Stop: 12/28/16 14:59 Last Admin: 11/02/16 07:08 Dose: 2.5 mg Docusate Sodium (Colace) 100 mg PO BID [facility] Stop: 12/30/16 08:59 Last Admin: 11/01/16 16:36 Dose: 100 mg Cefepime HCl 0.5 gm/ Dextrose 50 mls @ 100 mls/hr IV Q24H [facility] Stop: 12/30/16 20:59 Last Admin: 11/01/16 20:57 Dose: 100 mls/hr Sodium Chloride (Nacl 0.9%) 1,000 mls @ 40 mls/hr IV .Q24H [facility] Stop: 12/28/16 02:14 Last Admin: 11/02/16 02:55 Dose: 40 mls/hr Insulin Aspart (Novolog Insulin Sliding Scale) 0 units SUBQ ACHS [facility] PRN Reason: Protocol Stop: 12/28/16 11:29 Last Admin: 11/02/16 07:10 Dose: 2 units Miscellaneous (Clinical Monitoring) 1 e[facility] PRN PRN PRN Reason: RENAL DOSING CEFEPIME Stop: 12/28/16 10:50 Zolpidem Tartrate (Ambien) 5 mg PO HS [facility] Stop: 12/28/16 20:59 Last Admin: 11/01/16 20:51 Dose: 5 mg General: Alert, Oriented x3, Cooperative HEENT: Atraumatic Neck: Supple Cardiovascular: Regular rate Lungs: Other (No air movement from [place] to lower left hemithorax) Abdomen: Bowel sounds Extremities: Other Neurological: Other (Unstable gait) Skin: Other (Warm and dry) Psych/Mental Status: Mental status NL Assessment/Plan - Assessment Assessment: Patient is awake, alert, calm. US guided Thoracentesis was done, awaiting results. Today WBC increased, Creatinine improving. - Plan Plan: US guided thoracocentesis was done. Due to increased of WBC, doxycycline is started. Will continue monitoring
--- NOTE | 2016-11-02 09:55 | Diagnostic Imaging Report ---
Portable chest x-ray HISTORY: Shortness of breath Compared with the prior exam of 10/31/2016, there remains persistent opacification of the left hemithorax. Diffuse infiltrates remains through the right lung. IMPRESSION: 1. Little change in the pulmonary status as noted above.
[2016-11-02 13:07] LABS: NEUTROPHILS 87 % (40-80); PLATELET ESTIMATE ADEQUATE (NORMAL); PLATELET MORPHOLOGY NORMAL (NORMAL); TOTAL CELLS COUNTED 100
--- NOTE | 2016-11-02 16:46 | General Progress Note ---
Subjective - Review of Systems Service Date: 11/02/16 Subjective: more tachypneic, denied pain, on BIPAP Objective - Results Result Diagrams: 11/02/16 05:32 11/02/16 05:32 Recent Labs: Laboratory Last Values WBC 13.6 Th/cmm (4.8-10.8) H 11/02/16 05:32 RBC 3.62 Mil/cmm (4.30-5.70) L 11/02/16 05:32 Hgb 10.1 gm/dL (13.2-17.3) L 11/02/16 05:32 Hct 30.2 % (39.0-49.0) L 11/02/16 05:32 MCV 83.3 fl (80-99) 11/02/16 05:32 MCH 27.9 pg (26.0-30.0) 11/02/16 05:32 MCHC Differential 33.4 pg (28.0-36.0) 11/02/16 05:32 RDW 16.6 % (11.5-20.0) 11/02/16 05:32 Plt Count 284 Th/cmm (150-400) 11/02/16 05:32 MPV 8.7 fl 11/02/16 05:32 Band Neutrophils % 1 % (0-10) 11/01/16 05:41 Neutrophils (Manual) 87 % (40-80) H 11/02/16 05:32 Lymphocytes 11 % (20-50) L 11/02/16 05:32 Monocytes 2 % (2-10) 11/02/16 05:32 Eosinophils 1 % (0-5) 11/01/16 05:41 Platelet Estimate ADEQUATE (NORMAL) 11/02/16 05:32 Platelet Morphology NORMAL (NORMAL) 11/02/16 05:32 RBC Morph Micro Appear NORMAL (NORMAL) 11/02/16 05:32 PT 11.5 SECONDS (9.5-11.5) 10/31/16 05:34 INR 1.15 (0.5-1.4) 10/31/16 05:34 Sodium 139 mEq/L (136-145) 11/02/16 05:32 Potassium 3.8 mEq/L (3.5-5.1) 11/02/16 05:32 Chloride 113 mEq/L (98-107) H 11/02/16 05:32 Carbon Dioxide 20.9 mEq/L (21.0-31.0) L 11/02/16 05:32 Anion Gap 8.9 (7.0-16.0) 11/02/16 05:32 BUN 42 mg/dL (7-25) H 11/02/16 05:32 Creatinine 2.1 mg/dL (0.7-1.3) H 11/02/16 05:32 Est GFR ( Amer) 41.1 ml/min (>90) 11/02/16 05:32 Est GFR (Non-Af Amer) 34.0 ml/min 11/02/16 05:32 BUN/Creatinine Ratio 20.0 11/02/16 05:32 Glucose 194 mg/dL (70-105) H 11/02/16 05:32 POC Glucose 262 MG/DL (70 - 105) H 11/02/16 11:56 Hemoglobin A1c % 8.5 % (4.0-6.0) H 10/29/16 06:00 Calcium 9.3 mg/dL (8.6-10.3) 11/02/16 05:32 Total Bilirubin 0.3 mg/dL (0.3-1.0) 11/02/16 05:32 AST 9 U/L (13-39) L 11/02/16 05:32 ALT 12 U/L (7-52) 11/02/16 05:32 Alkaline Phosphatase 62 U/L (34-104) 11/02/16 05:32 Total Protein 6.4 gm/dL (6.0-8.3) 11/02/16 05:32 Albumin 2.0 gm/dL (4.2-5.5) L 11/02/16 05:32 Globulin 4.4 gm/dL 11/02/16 05:32 Albumin/Globulin Ratio 0.5 (1.0-1.8) L 11/02/16 05:32 TSH 0.39 uIU/ml (0.34-5.60) 10/29/16 06:00 Fluid Source THROACENTHESIS 10/31/16 17:10 Fluid Color YELLOW 10/31/16 17:10 Fluid Appearance HAZY 10/31/16 17:10 Fluid WBC 832 /cumm 10/31/16 17:10 Fluid RBC 01737 /cumm 10/31/16 17:10 Fluid Neutrophils 14 % 10/31/16 17:10 Fluid Lymphocytes 81 % 10/31/16 17:10 Fluid Monocytes 5 % 10/31/16 17:10 Fluid Glucose 193.0 mg/dL 10/31/16 17:10 Fluid Total Protein 3.1 g/dL 10/31/16 17:10 - Physical Exam Vitals and I&O: Vital Signs Temp 98.3 F 11/02/16 12:00 Pulse 129 11/02/16 14:03 Resp 51 11/02/16 16:22 BP 121/74 11/02/16 12:00 Pulse Ox 99 11/02/16 16:22 Intake & Output 11/01/16 11/02/16 11/02/16 18:59 06:59 18:59 Intake Total 240 100 Balance 240 100 Intake: Oral 240 100 Active Medications: Current Medications Acetaminophen/Hydrocodone Bitart ([place] 5mg/325mg) 1 tab PO Q6H PRN PRN Reason: Pain (Mild) Stop: 12/28/16 02:02 Albuterol Sulfate (Albuterol 2.5mg/3ml Neb Ud) 2.5 mg HHN Q4HRT [facility] Stop: 12/28/16 14:59 Last Admin: 11/02/16 14:00 Dose: 2.5 mg Docusate Sodium (Colace) 100 mg PO BID [facility] Stop: 12/30/16 08:59 Last Admin: 11/02/16 09:57 Dose: 100 mg Doxycycline Hyclate (Vibramycin) 100 mg PO Q12HR [facility] Stop: 01/01/17 20:59 Cefepime HCl 0.5 gm/ Dextrose 50 mls @ 100 mls/hr IV Q24H [facility] Stop: 12/30/16 20:59 Last Admin: 11/01/16 20:57 Dose: 100 mls/hr Sodium Chloride (Nacl 0.9%) 1,000 mls @ 40 mls/hr IV .Q24H [facility] Stop: 12/28/16 02:14 Last Admin: 11/02/16 02:55 Dose: 40 mls/hr Insulin Aspart (Novolog Insulin Sliding Scale) 0 units SUBQ ACHS [facility] PRN Reason: Protocol Stop: 12/28/16 11:29 Last Admin: 11/02/16 12:26 Dose: 6 units Methylprednisolone Acetate (Depo-Medrol) 80 mg IV Q6HR [facility] Stop: 01/01/17 17:59 Miscellaneous (Clinical Monitoring) 1 ea [facility] PRN PRN PRN Reason: RENAL DOSING CEFEPIME Stop: 12/28/16 10:50 Zolpidem Tartrate (Ambien) 5 mg PO HS [facility] Stop: 12/28/16 20:59 Last Admin: 11/01/16 20:51 Dose: 5 mg General: Severe distress (drowsy) HEENT: Atraumatic, Mucous membr. 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
[2016-11-02 17:29] LABS: ABG SOURCE Arterial; HCO3 24.8 mmol/L (20.0-26.0)
[2016-11-02 17:30] LABS: CRITICAL VALUES REPORTED BY SH; FIO2 100; MECH RATE 52; MECH VT 486; PS 6
[2016-11-02] MEDS: methylPREDNISolone SS 40 mg Vial IVP SCH (17:47)
[2016-11-03] MEDS: Albuterol Nebulizer 2.5mg/3mL HHN SCH ×6 (03:00→23:21)
[2016-11-03] MEDS: methylPREDNISolone SS 40 mg Vial IVP SCH ×2 (05:27→12:16)
[2016-11-03] MEDS: INSULIN ASPART SLIDING SCALE 100 UNITS/ML UNIT SUBQ SCH ×4 (07:02→22:14)
[2016-11-03 07:03] LABS: ANION GAP 9.7 (7.0-16.0); BUN/CREATININE RATIO 20.4; CALCIUM SERUM 9.6 mg/dL (8.6-10.3); CARBON DIOXIDE 22.7 mEq/L (21.0-31.0); CREATININE - SERUM 2.3 mg/dL (0.7-1.3); POTASSIUM SERUM 4.4 mEq/L (3.5-5.1)
[2016-11-03 07:04] LABS: HEMATOCRIT 29.6 % (39.0-49.0); HEMOGLOBIN 9.8 gm/dL (13.2-17.3); MEAN CELL VOLUME 81.9 fl (80-99); MEAN CORPUSCULAR HEMOGLOBIN 27.2 pg (26.0-30.0); MEAN CORPUSCULAR HGB CONC 33.1 pg (28.0-36.0); MEAN PLATELET VOLUME 8.8 fl; PLATELET COUNT 312 Th/cmm (150-400); RED BLOOD COUNT 3.61 Mil/cmm (4.30-5.70); RED CELL DISTRIBUTION WIDTH 17.5 % (11.5-20.0); WHITE BLOOD COUNT 13.4 Th/cmm (4.8-10.8)
[2016-11-03 08:41] LABS: NEUTROPHILS 93 % (40-80); PLATELET ESTIMATE ADEQUATE (NORMAL); PLATELET MORPHOLOGY NORMAL (NORMAL); TOTAL CELLS COUNTED 100
--- NOTE | 2016-11-03 09:47 | General Progress Note ---
Subjective - Review of Systems Service Date: 11/03/16 Subjective: I have SOB. Objective - Results Result Diagrams: 11/03/16 06:20 11/03/16 06:20 Recent Labs: Laboratory Last Values WBC 13.4 Th/cmm (4.8-10.8) H 11/03/16 06:20 RBC 3.61 Mil/cmm (4.30-5.70) L 11/03/16 06:20 Hgb 9.8 gm/dL (13.2-17.3) L 11/03/16 06:20 Hct 29.6 % (39.0-49.0) L 11/03/16 06:20 MCV 81.9 fl (80-99) 11/03/16 06:20 MCH 27.2 pg (26.0-30.0) 11/03/16 06:20 MCHC Differential 33.1 pg (28.0-36.0) 11/03/16 06:20 RDW 17.5 % (11.5-20.0) 11/03/16 06:20 Plt Count 312 Th/cmm (150-400) 11/03/16 06:20 MPV 8.8 fl 11/03/16 06:20 Band Neutrophils % 1 % (0-10) 11/01/16 05:41 Neutrophils (Manual) 93 % (40-80) H 11/03/16 06:20 Lymphocytes 5 % (20-50) L 11/03/16 06:20 Monocytes 2 % (2-10) 11/03/16 06:20 Eosinophils 1 % (0-5) 11/01/16 05:41 Platelet Estimate ADEQUATE (NORMAL) 11/03/16 06:20 Platelet Morphology NORMAL (NORMAL) 11/03/16 06:20 RBC Morph Micro Appear NORMAL (NORMAL) 11/03/16 06:20 PT 11.5 SECONDS (9.5-11.5) 10/31/16 05:34 INR 1.15 (0.5-1.4) 10/31/16 05:34 Specimen Source Arterial 11/02/16 17:00 Sample Site RB 11/02/16 17:00 pH 7.40 (7.35-7.45) 11/02/16 17:00 pCO2 40.0 mmHg (35.0-45.0) 11/02/16 17:00 pO2 116.0 mmHg (80.0-100.0) H 11/02/16 17:00 HCO3 24.8 mmol/L (20.0-26.0) 11/02/16 17:00 Base Excess 0.0 mmol/L (-3.0-3.0) 11/02/16 17:00 O2 Saturation 99.0 % (92.0-100.0) 11/02/16 17:00 David Test NA 11/02/16 17:00 Vent Rate 52 11/02/16 17:00 Inspired O2 100 11/02/16 17:00 Tidal Volume 486 11/02/16 17:00 PEEP NA 11/02/16 17:00 Pressure (ins/psv/peep) 6 11/02/16 17:00 Critical Value SH 11/02/16 17:00 Sodium 142 mEq/L (136-145) 11/03/16 06:20 Potassium 4.4 mEq/L (3.5-5.1) 11/03/16 06:20 Chloride 114 mEq/L (98-107) H 11/03/16 06:20 Carbon Dioxide 22.7 mEq/L (21.0-31.0) 11/03/16 06:20 Anion Gap 9.7 (7.0-16.0) 11/03/16 06:20 BUN 47 mg/dL (7-25) H 11/03/16 06:20 Creatinine 2.3 mg/dL (0.7-1.3) H 11/03/16 06:20 Est GFR ( Amer) 37.0 ml/min (>90) 11/03/16 06:20 Est GFR (Non-Af Amer) 30.6 ml/min 11/03/16 06:20 BUN/Creatinine Ratio 20.4 11/03/16 06:20 Glucose 262 mg/dL (70-105) H 11/03/16 06:20 POC Glucose 251 MG/DL (70 - 105) H 11/03/16 06:50 Hemoglobin A1c % 8.5 % (4.0-6.0) H 10/29/16 06:00 Calcium 9.6 mg/dL (8.6-10.3) 11/03/16 06:20 Total Bilirubin 0.3 mg/dL (0.3-1.0) 11/02/16 05:32 AST 9 U/L (13-39) L 11/02/16 05:32 ALT 12 U/L (7-52) 11/02/16 05:32 Alkaline Phosphatase 62 U/L (34-104) 11/02/16 05:32 Total Protein 6.4 gm/dL (6.0-8.3) 11/02/16 05:32 Albumin 2.0 gm/dL (4.2-5.5) L 11/02/16 05:32 Globulin 4.4 gm/dL 11/02/16 05:32 Albumin/Globulin Ratio 0.5 (1.0-1.8) L 11/02/16 05:32 TSH 0.39 uIU/ml (0.34-5.60) 10/29/16 06:00 Fluid Source THROACENTHESIS 10/31/16 17:10 Fluid Color YELLOW 10/31/16 17:10 Fluid Appearance HAZY 10/31/16 17:10 Fluid WBC 832 /cumm 10/31/16 17:10 Fluid RBC 51313 /cumm 10/31/16 17:10 Fluid Neutrophils 14 % 10/31/16 17:10 Fluid Lymphocytes 81 % 10/31/16 17:10 Fluid Monocytes 5 % 10/31/16 17:10 Fluid Glucose 193.0 mg/dL 10/31/16 17:10 Fluid Total Protein 3.1 g/dL 10/31/16 17:10 - Physical Exam Vitals and I&O: Vital Signs Temp 99 F 11/03/16 00:00 Pulse 125 11/03/16 00:00 Resp 35 11/03/16 09:00 BP 132/68 11/03/16 00:00 Pulse Ox 95 11/03/16 09:00 Active Medications: Current Medications Acetaminophen/Hydrocodone Bitart ([place] 5mg/325mg) 1 tab PO Q6H PRN PRN Reason: Pain (Mild) Stop: 12/28/16 02:02 Albuterol Sulfate (Albuterol 2.5mg/3ml Neb Ud) 2.5 mg HHN Q4HRT [facility] Stop: 12/28/16 14:59 Last Admin: 11/03/16 06:45 Dose: 2.5 mg Docusate Sodium (Colace) 100 mg PO BID [facility] Stop: 12/30/16 08:59 Last Admin: 11/02/16 17:30 Dose: Not Given Doxycycline Hyclate (Vibramycin) 100 mg PO Q12HR [facility] Stop: 01/01/17 20:59 Last Admin: 11/02/16 22:41 Dose: Not Given Cefepime HCl 0.5 gm/ Dextrose 50 mls @ 100 mls/hr IV Q24H [facility] Stop: 12/30/16 20:59 Last Admin: 11/02/16 22:54 Dose: 100 mls/hr Sodium Chloride (Nacl 0.9%) 1,000 mls @ 40 mls/hr IV .Q24H [facility] Stop: 12/28/16 02:14 Last Admin: 11/02/16 02:55 Dose: 40 mls/hr Insulin Aspart (Novolog Insulin Sliding Scale) 0 units SUBQ ACHS [facility] PRN Reason: Protocol Stop: 12/28/16 11:29 Last Admin: 11/03/16 07:02 Dose: 6 units Lorazepam (Ativan) 0.5 mg IVP Q6HR PRN; Protocol PRN Reason: Anxiety Stop: 01/01/17 16:52 Last Admin: 11/02/16 17:24 Dose: 0.5 mg Methylprednisolone Sodium Succinate (Solu-Medrol) 80 mg IVP Q6HR [facility] Stop: 01/01/17 17:59 Last Admin: 11/03/16 05:27 Dose: 80 mg Miscellaneous (Clinical Monitoring) 1 [facility] PRN PRN PRN Reason: RENAL DOSING CEFEPIME Stop: 12/28/16 10:50 Miscellaneous (Clinical Monitoring) 1 [facility] PRN PRN PRN Reason: RENAL DOSING Stop: 01/02/17 09:26 Zolpidem Tartrate (Ambien) 5 mg PO HS [facility] Stop: 12/28/16 20:59 Last Admin: 11/02/16 22:40 Dose: Not Given General: Alert, Oriented x3 HEENT: Atraumatic Neck: Supple Cardiovascular: Regular rate Lungs: Other (No air movement on left lung, diminished air movement and crackles in right lung) Neurological: Other (Non ambulatory) Skin: Other (Warm and dry) Psych/Mental Status: Mental status NL Assessment/Plan - Assessment Assessment: Patient is awake, alert, calm on BIPAP. Today WBC continue high, Creatinine improving. - Plan Plan: US guided thoracocentesis was done. Due that patient can not take any po, all po meds will be hold. Case discussed with family for possible Hospice treatment. Will continue monitoring
--- NOTE | 2016-11-03 13:10 | General Progress Note ---
Subjective - Review of Systems Service Date: 11/03/16 Subjective: more tachypneic, denied pain, on BIPAP Objective - Results Result Diagrams: 11/03/16 06:20 11/03/16 06:20 Recent Labs: Laboratory Last Values WBC 13.4 Th/cmm (4.8-10.8) H 11/03/16 06:20 RBC 3.61 Mil/cmm (4.30-5.70) L 11/03/16 06:20 Hgb 9.8 gm/dL (13.2-17.3) L 11/03/16 06:20 Hct 29.6 % (39.0-49.0) L 11/03/16 06:20 MCV 81.9 fl (80-99) 11/03/16 06:20 MCH 27.2 pg (26.0-30.0) 11/03/16 06:20 MCHC Differential 33.1 pg (28.0-36.0) 11/03/16 06:20 RDW 17.5 % (11.5-20.0) 11/03/16 06:20 Plt Count 312 Th/cmm (150-400) 11/03/16 06:20 MPV 8.8 fl 11/03/16 06:20 Band Neutrophils % 1 % (0-10) 11/01/16 05:41 Neutrophils (Manual) 93 % (40-80) H 11/03/16 06:20 Lymphocytes 5 % (20-50) L 11/03/16 06:20 Monocytes 2 % (2-10) 11/03/16 06:20 Eosinophils 1 % (0-5) 11/01/16 05:41 Platelet Estimate ADEQUATE (NORMAL) 11/03/16 06:20 Platelet Morphology NORMAL (NORMAL) 11/03/16 06:20 RBC Morph Micro Appear NORMAL (NORMAL) 11/03/16 06:20 PT 11.5 SECONDS (9.5-11.5) 10/31/16 05:34 INR 1.15 (0.5-1.4) 10/31/16 05:34 Specimen Source Arterial 11/02/16 17:00 Sample Site RB 11/02/16 17:00 pH 7.40 (7.35-7.45) 11/02/16 17:00 pCO2 40.0 mmHg (35.0-45.0) 11/02/16 17:00 pO2 116.0 mmHg (80.0-100.0) H 11/02/16 17:00 HCO3 24.8 mmol/L (20.0-26.0) 11/02/16 17:00 Base Excess 0.0 mmol/L (-3.0-3.0) 11/02/16 17:00 O2 Saturation 99.0 % (92.0-100.0) 11/02/16 17:00 David Test NA 11/02/16 17:00 Vent Rate 52 11/02/16 17:00 Inspired O2 100 11/02/16 17:00 Tidal Volume 486 11/02/16 17:00 PEEP NA 11/02/16 17:00 Pressure (ins/psv/peep) 6 11/02/16 17:00 Critical Value SH 11/02/16 17:00 Sodium 142 mEq/L (136-145) 11/03/16 06:20 Potassium 4.4 mEq/L (3.5-5.1) 11/03/16 06:20 Chloride 114 mEq/L (98-107) H 11/03/16 06:20 Carbon Dioxide 22.7 mEq/L (21.0-31.0) 11/03/16 06:20 Anion Gap 9.7 (7.0-16.0) 11/03/16 06:20 BUN 47 mg/dL (7-25) H 11/03/16 06:20 Creatinine 2.3 mg/dL (0.7-1.3) H 11/03/16 06:20 Est GFR ( Amer) 37.0 ml/min (>90) 11/03/16 06:20 Est GFR (Non-Af Amer) 30.6 ml/min 11/03/16 06:20 BUN/Creatinine Ratio 20.4 11/03/16 06:20 Glucose 262 mg/dL (70-105) H 11/03/16 06:20 POC Glucose 201 MG/DL (70 - 105) H 11/03/16 11:23 Hemoglobin A1c % 8.5 % (4.0-6.0) H 10/29/16 06:00 Calcium 9.6 mg/dL (8.6-10.3) 11/03/16 06:20 Total Bilirubin 0.3 mg/dL (0.3-1.0) 11/02/16 05:32 AST 9 U/L (13-39) L 11/02/16 05:32 ALT 12 U/L (7-52) 11/02/16 05:32 Alkaline Phosphatase 62 U/L (34-104) 11/02/16 05:32 Total Protein 6.4 gm/dL (6.0-8.3) 11/02/16 05:32 Albumin 2.0 gm/dL (4.2-5.5) L 11/02/16 05:32 Globulin 4.4 gm/dL 11/02/16 05:32 Albumin/Globulin Ratio 0.5 (1.0-1.8) L 11/02/16 05:32 TSH 0.39 uIU/ml (0.34-5.60) 10/29/16 06:00 Fluid Source THROACENTHESIS 10/31/16 17:10 Fluid Color YELLOW 10/31/16 17:10 Fluid Appearance HAZY 10/31/16 17:10 Fluid WBC 832 /cumm 10/31/16 17:10 Fluid RBC 75344 /cumm 10/31/16 17:10 Fluid Neutrophils 14 % 10/31/16 17:10 Fluid Lymphocytes 81 % 10/31/16 17:10 Fluid Monocytes 5 % 10/31/16 17:10 Fluid Glucose 193.0 mg/dL 10/31/16 17:10 Fluid Total Protein 3.1 g/dL 10/31/16 17:10 - Physical Exam Vitals and I&O: Vital Signs Temp 99 F 11/03/16 00:00 Pulse 125 11/03/16 00:00 Resp 46 11/03/16 13:00 BP 132/68 11/03/16 00:00 Pulse Ox 93 11/03/16 13:00 Active Medications: Current Medications Acetaminophen/Hydrocodone Bitart ([place] 5mg/325mg) 1 tab PO Q6H PRN PRN Reason: Pain (Mild) Stop: 12/28/16 02:02 Albuterol Sulfate (Albuterol 2.5mg/3ml Neb Ud) 2.5 mg HHN Q4HRT [facility] Stop: 12/28/16 14:59 Last Admin: 11/03/16 10:48 Dose: 2.5 mg Docusate Sodium (Colace) 100 mg PO BID [facility] Stop: 12/30/16 08:59 Last Admin: 11/03/16 10:10 Dose: 100 mg Doxycycline Hyclate (Vibramycin) 100 mg PO Q12HR [facility] Stop: 01/01/17 20:59 Last Admin: 11/03/16 10:10 Dose: 100 mg Cefepime HCl 0.5 gm/ Dextrose 50 mls @ 100 mls/hr IV Q24H BETHANY Stop: 12/30/16 20:59 Last Admin: 11/02/16 22:54 Dose: 100 mls/hr Sodium Chloride (Nacl 0.9%) 1,000 mls @ 40 mls/hr IV .Q24H BETHANY Stop: 12/28/16 02:14 Last Admin: 11/02/16 02:55 Dose: 40 mls/hr Insulin Aspart (Novolog Insulin Sliding Scale) 0 units SUBQ ACHS BETHANY PRN Reason: Protocol Stop: 12/28/16 11:29 Last Admin: 11/03/16 12:16 Dose: 4 units Lorazepam (Ativan) 0.5 mg IVP Q6HR PRN; Protocol PRN Reason: Anxiety Stop: 01/01/17 16:52 Last Admin: 11/02/16 17:24 Dose: 0.5 mg Methylprednisolone Sodium Succinate (Solu-Medrol) 80 mg IVP Q6HR BETHANY Stop: 01/01/17 17:59 Last Admin: 11/03/16 12:16 Dose: 80 mg Miscellaneous (Clinical Monitoring) 1 [facility] PRN PRN PRN Reason: RENAL DOSING CEFEPIME Stop: 12/28/16 10:50 Miscellaneous (Clinical Monitoring) 1 [facility] PRN PRN PRN Reason: RENAL DOSING Stop: 01/02/17 09:26 Zolpidem Tartrate (Ambien) 5 mg PO HS [facility] Stop: 12/28/16 20:59 Last Admin: 11/02/16 22:40 Dose: Not Given General: Severe distress HEENT: Atraumatic, Mucous membr. 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
[2016-11-04] MEDS: methylPREDNISolone SS 40 mg Vial IVP SCH ×4 (00:25→17:17)
[2016-11-04] MEDS: Albuterol Nebulizer 2.5mg/3mL HHN SCH ×3 (03:38→14:01)
[2016-11-04] MEDS: INSULIN ASPART SLIDING SCALE 100 UNITS/ML UNIT SUBQ SCH ×3 (06:32→16:58)
[2016-11-04 07:06] LABS: HEMOGLOBIN 10.8 gm/dL (13.2-17.3); MEAN CELL VOLUME 83.8 fl (80-99); MEAN CORPUSCULAR HEMOGLOBIN 27.4 pg (26.0-30.0); MEAN CORPUSCULAR HGB CONC 32.6 pg (28.0-36.0); MEAN PLATELET VOLUME 9.2 fl; RED BLOOD COUNT 3.96 Mil/cmm (4.30-5.70); RED CELL DISTRIBUTION WIDTH 17.3 % (11.5-20.0)
[2016-11-04 07:23] LABS: HEMATOCRIT 33.2 % (39.0-49.0); PLATELET COUNT 454 Th/cmm (150-400)
[2016-11-04 07:29] LABS: ALB/GLOB RATIO 0.5 (1.0-1.8); ANION GAP 8.3 (7.0-16.0); BILIRUBIN,TOTAL 0.3 mg/dL (0.3-1.0); BUN/CREATININE RATIO 24.2; CALCIUM SERUM 10.1 mg/dL (8.6-10.3); CARBON DIOXIDE 19.1 mEq/L (21.0-31.0); CREATININE - SERUM 2.6 mg/dL (0.7-1.3); POTASSIUM SERUM 4.4 mEq/L (3.5-5.1)
--- NOTE | 2016-11-04 08:59 | General Progress Note ---
Subjective - Review of Systems Service Date: 11/04/16 Subjective: Patient on BIPAP Objective - Results Result Diagrams: 11/04/16 05:50 11/04/16 05:50 Recent Labs: Laboratory Last Values WBC 24.0 Th/cmm (4.8-10.8) H* D 11/04/16 05:50 RBC 3.96 Mil/cmm (4.30-5.70) L 11/04/16 05:50 Hgb 10.8 gm/dL (13.2-17.3) L 11/04/16 05:50 Hct 33.2 % (39.0-49.0) L D 11/04/16 05:50 MCV 83.8 fl (80-99) 11/04/16 05:50 MCH 27.4 pg (26.0-30.0) 11/04/16 05:50 MCHC Differential 32.6 pg (28.0-36.0) 11/04/16 05:50 RDW 17.3 % (11.5-20.0) 11/04/16 05:50 Plt Count 454 Th/cmm (150-400) H D 11/04/16 05:50 MPV 9.2 fl 11/04/16 05:50 Band Neutrophils % 1 % (0-10) 11/01/16 05:41 Neutrophils (Manual) 93 % (40-80) H 11/03/16 06:20 Lymphocytes 5 % (20-50) L 11/03/16 06:20 Monocytes 2 % (2-10) 11/03/16 06:20 Eosinophils 1 % (0-5) 11/01/16 05:41 Platelet Estimate ADEQUATE (NORMAL) 11/03/16 06:20 Platelet Morphology NORMAL (NORMAL) 11/03/16 06:20 RBC Morph Micro Appear NORMAL (NORMAL) 11/03/16 06:20 PT 11.5 SECONDS (9.5-11.5) 10/31/16 05:34 INR 1.15 (0.5-1.4) 10/31/16 05:34 Specimen Source Arterial 11/02/16 17:00 Sample Site RB 11/02/16 17:00 pH 7.40 (7.35-7.45) 11/02/16 17:00 pCO2 40.0 mmHg (35.0-45.0) 11/02/16 17:00 pO2 116.0 mmHg (80.0-100.0) H 11/02/16 17:00 HCO3 24.8 mmol/L (20.0-26.0) 11/02/16 17:00 Base Excess 0.0 mmol/L (-3.0-3.0) 11/02/16 17:00 O2 Saturation 99.0 % (92.0-100.0) 11/02/16 17:00 David Test NA 11/02/16 17:00 Vent Rate 52 11/02/16 17:00 Inspired O2 100 11/02/16 17:00 Tidal Volume 486 11/02/16 17:00 PEEP NA 11/02/16 17:00 Pressure (ins/psv/peep) 6 11/02/16 17:00 Critical Value SH 11/02/16 17:00 Sodium 141 mEq/L (136-145) 11/04/16 05:50 Potassium 4.4 mEq/L (3.5-5.1) 11/04/16 05:50 Chloride 118 mEq/L (98-107) H 11/04/16 05:50 Carbon Dioxide 19.1 mEq/L (21.0-31.0) L 11/04/16 05:50 Anion Gap 8.3 (7.0-16.0) 11/04/16 05:50 BUN 63 mg/dL (7-25) H 11/04/16 05:50 Creatinine 2.6 mg/dL (0.7-1.3) H 11/04/16 05:50 Est GFR ( Amer) 32.1 ml/min (>90) 11/04/16 05:50 Est GFR (Non-Af Amer) 26.5 ml/min 11/04/16 05:50 BUN/Creatinine Ratio 24.2 11/04/16 05:50 Glucose 246 mg/dL (70-105) H 11/04/16 05:50 POC Glucose 242 MG/DL (70 - 105) H 11/04/16 06:17 Hemoglobin A1c % 8.5 % (4.0-6.0) H 10/29/16 06:00 Calcium 10.1 mg/dL (8.6-10.3) 11/04/16 05:50 Total Bilirubin 0.3 mg/dL (0.3-1.0) 11/04/16 05:50 AST 13 U/L (13-39) 11/04/16 05:50 ALT 13 U/L (7-52) 11/04/16 05:50 Alkaline Phosphatase 73 U/L (34-104) 11/04/16 05:50 Total Protein 7.2 gm/dL (6.0-8.3) 11/04/16 05:50 Albumin 2.4 gm/dL (4.2-5.5) L 11/04/16 05:50 Globulin 4.8 gm/dL 11/04/16 05:50 Albumin/Globulin Ratio 0.5 (1.0-1.8) L 11/04/16 05:50 TSH 0.39 uIU/ml (0.34-5.60) 10/29/16 06:00 Fluid Source THROACENTHESIS 10/31/16 17:10 Fluid Color YELLOW 10/31/16 17:10 Fluid Appearance HAZY 10/31/16 17:10 Fluid WBC 832 /cumm 10/31/16 17:10 Fluid RBC 56270 /cumm 10/31/16 17:10 Fluid Neutrophils 14 % 10/31/16 17:10 Fluid Lymphocytes 81 % 10/31/16 17:10 Fluid Monocytes 5 % 10/31/16 17:10 Fluid Glucose 193.0 mg/dL 10/31/16 17:10 Fluid Total Protein 3.1 g/dL 10/31/16 17:10 - Physical Exam Vitals and I&O: Vital Signs Temp 98.2 F 11/04/16 04:00 Pulse 110 11/04/16 04:00 Resp 45 11/04/16 05:43 BP 133/57 11/04/16 04:00 Pulse Ox 88 11/04/16 05:43 Intake & Output 11/03/16 11/04/16 11/04/16 18:59 06:59 18:59 Intake Total 100 50 240 Output Total 2 Balance 98 50 240 Intake: Intake, IV Amount 50 Cefepime 0.5 gm In 50 Dextrose 5% 50 ml @ 100 mls/hr IV Q24H [facility] Rx#: [id number] Oral 100 240 Output: Urine 2 Other: # Voids 3 Active Medications: Current Medications Acetaminophen/Hydrocodone Bitart ([place] 5mg/325mg) 1 tab PO Q6H PRN PRN Reason: Pain (Mild) Stop: 12/28/16 02:02 Albuterol Sulfate (Albuterol 2.5mg/3ml Neb Ud) 2.5 mg HHN Q4HRT [facility] Stop: 12/28/16 14:59 Last Admin: 11/04/16 03:38 Dose: 2.5 mg Docusate Sodium (Colace) 100 mg PO BID [facility] Stop: 12/30/16 08:59 Last Admin: 11/03/16 16:51 Dose: 100 mg Doxycycline Hyclate (Vibramycin) 100 mg PO Q12HR [facility] Stop: 01/01/17 20:59 Last Admin: 11/03/16 21:57 Dose: 100 mg Sodium Chloride (Nacl 0.9%) 1,000 mls @ 40 mls/hr IV .Q24H [facility] Stop: 12/28/16 02:14 Last Admin: 11/02/16 02:55 Dose: 40 mls/hr Piperacillin Sod/Tazobactam (Sod 3.375 gm/ Sodium Chloride) 50 mls @ 100 mls/ hr IV Q6HR [facility] Stop: 01/03/17 11:59 Insulin Aspart (Novolog Insulin Sliding Scale) 0 units SUBQ ACHS [facility] PRN Reason: Protocol Stop: 12/28/16 11:29 Last Admin: 11/04/16 06:32 Dose: 4 units Lorazepam (Ativan) 0.5 mg IVP Q6HR PRN; Protocol PRN Reason: Anxiety Stop: 01/01/17 16:52 Last Admin: 11/02/16 17:24 Dose: 0.5 mg Methylprednisolone Sodium Succinate (Solu-Medrol) 80 mg IVP Q6HR [facility] Stop: 01/01/17 17:59 Last Admin: 11/04/16 05:57 Dose: 80 mg Miscellaneous (Clinical Monitoring) 1 ea PRN PRN PRN Reason: RENAL DOSING CEFEPIME Stop: 12/28/16 10:50 Miscellaneous (Vancomycin Iv Per Pharmacy) 1 ea PRN PRN PRN Reason: PROTOCOL Stop: 01/03/17 08:43 Zolpidem Tartrate (Ambien) 5 mg PO HS [facility] Stop: 12/28/16 20:59 Last Admin: 11/03/16 21:56 Dose: 5 mg General: Other (Confused) HEENT: Atraumatic Neck: Supple Cardiovascular: Regular rate Lungs: Other (Poor bilateral ventilation, on BIPAP) Abdomen: Bowel sounds, Soft Extremities: Other (No edema) Neurological: Other (Non ambulatory at this moment) Skin: Other (Warm and dry) Psych/Mental Status: Other (Confused) - Procedures Procedures: Procedures Procedure Code Date ASPIRATE PLEURA W/O IMAGING 85035 10/29/16 ASSISTANCE WITH RESPIRATORY VENTILATION, <24 HRS, CPAP [id number] 10/29/16 DRAINAGE OF LEFT PLEURAL CAVITY, PERCUTANEOUS APPROACH [id number] 10/29/16 POS AIRWAY PRESSURE CPAP 84826 10/29/16 Assessment/Plan - Assessment Assessment: Patient is awake, confused on BIPAP. Today WBC increased, Creatinine high. - Plan Plan: due to increased in WBC antibiotics are changed. BIPAP settings are changed due that patient had O2 to 80%. Case discussed with family and informed them about the poor prognosis.
[2016-11-04 09:46] LABS: BAND NEUTROPHILE 6 % (0-10); NEUTROPHILS 87 % (40-80); TOTAL CELLS COUNTED 100
[2016-11-04 09:47] LABS: PLATELET ESTIMATE ADEQUATE (NORMAL); PLATELET MORPHOLOGY GIANT PLATELETS SEEN (NORMAL)
[2016-11-04] MEDS: Hydrocodone/APAP 5mg/325mg Tab PO PRN ×2 (10:27→16:51)
--- NOTE | 2016-11-04 11:43 | Diagnostic Imaging Report ---
Portable chest x-ray HISTORY: Shortness of breath Compared with prior exam of the vertebrae 2016, there remains complete opacification the right hemithorax. There is increasing infiltrate throughout the right lung. IMPRESSION: 1. Persistent complete opacification of the left hemithorax 2. Increasing infiltrate within the right lung
--- NOTE | 2016-11-04 12:01 | Pathology Report ---
[id number] Collection date: Surgeon: Dr. Nick Leblanc Specimen Description: Pleural fluid for cytology Gross Description: Received in a glass container is approximately 150 ml of reddish watery fluid. The entire specimen is sent for cytology processing. Microscopic Description: Examination of two cytospins and one cell block shows very scanty specimen cellularity consisting of red blood cells admixed with small numbers of inflammatory cells that consist of lymphocytes and neutrophils. Diagnosis: mostly red blood cells and a few inflammatory cells (limited evaluation due to scanty specimen cellularity). Comment: The specimen consists of mostly blood and small numbers of inflammatory cells. Clinical correlation is recommended to determine if a repeat specimen is warranted. [facility]# [id number] [facility] NET[facility]KS[facility]
--- NOTE | 2016-11-04 14:35 | General Progress Note ---
Subjective - Review of Systems Service Date: 11/04/16 Subjective: more tachypneic, denied pain, on BIPAP Objective - Results Result Diagrams: 11/04/16 05:50 11/04/16 05:50 Recent Labs: Laboratory Last Values WBC 24.0 Th/cmm (4.8-10.8) H* D 11/04/16 05:50 RBC 3.96 Mil/cmm (4.30-5.70) L 11/04/16 05:50 Hgb 10.8 gm/dL (13.2-17.3) L 11/04/16 05:50 Hct 33.2 % (39.0-49.0) L D 11/04/16 05:50 MCV 83.8 fl (80-99) 11/04/16 05:50 MCH 27.4 pg (26.0-30.0) 11/04/16 05:50 MCHC Differential 32.6 pg (28.0-36.0) 11/04/16 05:50 RDW 17.3 % (11.5-20.0) 11/04/16 05:50 Plt Count 454 Th/cmm (150-400) H D 11/04/16 05:50 MPV 9.2 fl 11/04/16 05:50 Band Neutrophils % 6 % (0-10) 11/04/16 05:50 Neutrophils (Manual) 87 % (40-80) H 11/04/16 05:50 Lymphocytes 4 % (20-50) L 11/04/16 05:50 Monocytes 3 % (2-10) 11/04/16 05:50 Eosinophils 1 % (0-5) 11/01/16 05:41 Platelet Estimate ADEQUATE (NORMAL) 11/04/16 05:50 Platelet Morphology GIANT PLATELETS SEEN (NORMAL) 11/04/16 05:50 RBC Morph Micro Appear NORMAL (NORMAL) 11/04/16 05:50 PT 11.5 SECONDS (9.5-11.5) 10/31/16 05:34 INR 1.15 (0.5-1.4) 10/31/16 05:34 Specimen Source Arterial 11/02/16 17:00 Sample Site RB 11/02/16 17:00 pH 7.40 (7.35-7.45) 11/02/16 17:00 pCO2 40.0 mmHg (35.0-45.0) 11/02/16 17:00 pO2 116.0 mmHg (80.0-100.0) H 11/02/16 17:00 HCO3 24.8 mmol/L (20.0-26.0) 11/02/16 17:00 Base Excess 0.0 mmol/L (-3.0-3.0) 11/02/16 17:00 O2 Saturation 99.0 % (92.0-100.0) 11/02/16 17:00 David Test NA 11/02/16 17:00 Vent Rate 52 11/02/16 17:00 Inspired O2 100 11/02/16 17:00 Tidal Volume 486 11/02/16 17:00 PEEP NA 11/02/16 17:00 Pressure (ins/psv/peep) 6 11/02/16 17:00 Critical Value SH 11/02/16 17:00 Sodium 141 mEq/L (136-145) 11/04/16 05:50 Potassium 4.4 mEq/L (3.5-5.1) 11/04/16 05:50 Chloride 118 mEq/L (98-107) H 11/04/16 05:50 Carbon Dioxide 19.1 mEq/L (21.0-31.0) L 11/04/16 05:50 Anion Gap 8.3 (7.0-16.0) 11/04/16 05:50 BUN 63 mg/dL (7-25) H 11/04/16 05:50 Creatinine 2.6 mg/dL (0.7-1.3) H 11/04/16 05:50 Est GFR ( Amer) 32.1 ml/min (>90) 11/04/16 05:50 Est GFR (Non-Af Amer) 26.5 ml/min 11/04/16 05:50 BUN/Creatinine Ratio 24.2 11/04/16 05:50 Glucose 246 mg/dL (70-105) H 11/04/16 05:50 POC Glucose 194 MG/DL (70 - 105) H 11/04/16 11:36 Hemoglobin A1c % 8.5 % (4.0-6.0) H 10/29/16 06:00 Calcium 10.1 mg/dL (8.6-10.3) 11/04/16 05:50 Total Bilirubin 0.3 mg/dL (0.3-1.0) 11/04/16 05:50 AST 13 U/L (13-39) 11/04/16 05:50 ALT 13 U/L (7-52) 11/04/16 05:50 Alkaline Phosphatase 73 U/L (34-104) 11/04/16 05:50 Total Protein 7.2 gm/dL (6.0-8.3) 11/04/16 05:50 Albumin 2.4 gm/dL (4.2-5.5) L 11/04/16 05:50 Globulin 4.8 gm/dL 11/04/16 05:50 Albumin/Globulin Ratio 0.5 (1.0-1.8) L 11/04/16 05:50 TSH 0.39 uIU/ml (0.34-5.60) 10/29/16 06:00 Fluid Source THROACENTHESIS 10/31/16 17:10 Fluid Color YELLOW 10/31/16 17:10 Fluid Appearance HAZY 10/31/16 17:10 Fluid WBC 832 /cumm 10/31/16 17:10 Fluid RBC 42693 /cumm 10/31/16 17:10 Fluid Neutrophils 14 % 10/31/16 17:10 Fluid Lymphocytes 81 % 10/31/16 17:10 Fluid Monocytes 5 % 10/31/16 17:10 Fluid Glucose 193.0 mg/dL 10/31/16 17:10 Fluid Total Protein 3.1 g/dL 10/31/16 17:10 - Physical Exam Vitals and I&O: Vital Signs Temp 98.2 F 11/04/16 04:00 Pulse 110 11/04/16 04:00 Resp 40 11/04/16 14:05 BP 133/57 11/04/16 04:00 Pulse Ox 91 11/04/16 14:05 Intake & Output 11/03/16 11/04/16 11/04/16 18:59 06:59 18:59 Intake Total 100 50 240 Output Total 2 Balance 98 50 240 Intake: Intake, IV Amount 50 Cefepime 0.5 gm In 50 Dextrose 5% 50 ml @ 100 mls/hr IV Q24H [facility] Rx#: [id number] Oral 100 240 Output: Urine 2 Other: # Voids 3 Active Medications: Current Medications Acetaminophen/Hydrocodone Bitart ([place] 5mg/325mg) 1 tab PO Q6H PRN PRN Reason: Pain (Mild) Stop: 12/28/16 02:02 Last Admin: 11/04/16 10:27 Dose: 1 tab Albuterol Sulfate (Albuterol 2.5mg/3ml Neb Ud) 2.5 mg HHN Q4HRT [facility] Stop: 12/28/16 14:59 Last Admin: 11/04/16 14:01 Dose: 2.5 mg Docusate Sodium (Colace) 100 mg PO BID [facility] Stop: 12/30/16 08:59 Last Admin: 11/04/16 10:27 Dose: 100 mg Doxycycline Hyclate (Vibramycin) 100 mg PO Q12HR [facility] Stop: 01/01/17 20:59 Last Admin: 11/04/16 10:27 Dose: 100 mg Sodium Chloride (Nacl 0.9%) 1,000 mls @ 40 mls/hr IV .Q24H [facility] Stop: 12/28/16 02:14 Last Admin: 11/02/16 02:55 Dose: 40 mls/hr Piperacillin Sod/Tazobactam (Sod 3.375 gm/ Sodium Chloride) 50 mls @ 100 mls/ hr IV Q6HR [facility] Stop: 01/03/17 11:59 Vancomycin HCl 0.75 gm/ Sodium (Chloride) 250 mls @ 165 mls/hr IV Q48H [facility] Stop: 01/03/17 09:59 Last Admin: 11/04/16 10:37 Dose: 165 mls/hr Insulin Aspart (Novolog Insulin Sliding Scale) 0 units SUBQ ACHS [facility] PRN Reason: Protocol Stop: 12/28/16 11:29 Last Admin: 11/04/16 11:50 Dose: 2 units Lorazepam (Ativan) 0.5 mg IVP Q6HR PRN; Protocol PRN Reason: Anxiety Stop: 01/01/17 16:52 Last Admin: 11/02/16 17:24 Dose: 0.5 mg Methylprednisolone Sodium Succinate (Solu-Medrol) 80 mg IVP Q6HR [facility] Stop: 01/01/17 17:59 Last Admin: 11/04/16 12:39 Dose: 80 mg Miscellaneous (Clinical Monitoring) 1 ea [facility] PRN PRN PRN Reason: RENAL DOSING CEFEPIME Stop: 12/28/16 10:50 Miscellaneous (Vancomycin Iv Per Pharmacy) 1 ea [facility] PRN PRN PRN Reason: PROTOCOL Stop: 01/03/17 08:43 Zolpidem Tartrate (Ambien) 5 mg PO HS [facility] Stop: 12/28/16 20:59 Last Admin: 11/03/16 21:56 Dose: 5 mg General: Severe distress HEENT: Atraumatic, Mucous membr. moist/pink Neck: Supple, +2 carotid pulse wo bruit Cardiovascular: Regular rate, Normal S1, Normal S2 Lungs: Other (rhonchi) Abdomen: Bowel sounds, Soft Extremities: no Edema Neurological: Sensation intact Skin: no Rash - Procedures Procedures: Procedures Procedure Code Date ASPIRATE PLEURA W/O IMAGING 31294 10/29/16 ASSISTANCE WITH RESPIRATORY VENTILATION, <24 HRS, CPAP [id number] 10/29/16 DRAINAGE OF LEFT PLEURAL CAVITY, PERCUTANEOUS APPROACH [id number] 10/29/16 POS AIRWAY PRESSURE CPAP 35403 10/29/16 Assessment/Plan - Assessment Assessment: ckd DAVE lung mass type 2 dm w/ ckd ess htn w/ ckd dyslipidemia acute resp failure on BIPAP - Plan Plan: BUN/CR same @ 63/2.6 decrease ivf due to worsening tachypnea awaiting urine workup f/u electrolytes, cbc s/p thoracentesis & mike 300ml pleural fluid obtained very poor prognosis family deciding about hospice
--- NOTE | 2016-11-07 23:44 | Discharge Summary ---
CHIEF COMPLAINT: Shortness of breath. HISTORY OF PRESENT ILLNESS: This is the case of a 66-year-old male who is living in [place]. Due to the family noted that he was getting worse despite medical treatment in [place], they decided to bring him in order to see if something can be done. The patient went to Emergency Room by [facility] [place]. He was evaluated there and a CT scan was done. It was found that the patient had a big mass in the left lung, plus pleural effusion. The patient was transferred to this hospital to continue treatment. HOSPITAL COURSE AND TREATMENT: This patient was admitted in the medical/surgical floor. He was started on IV normal saline, antibiotics, breathing treatment, and consult with Pneumology was done and recommendations were followed. Due to the acute over chronic kidney disease, consult with Nephrology was requested and recommendations were followed. After a few days in the hospital, a thoracic paracentesis was done and around 400 mL of liquid was obtained and was sent to lab for examination. Despite the thoracocentesis, breathing did not improve and a few days after, CPAP was ordered by Pneumology. In the 6-day hospitalization, BiPAP setting was changed due to oxygenation was below 90. Antibiotics were changed, and the patient continued with all other medications. Case was discussed with family members and the poor prognosis was given. Mass in the left lung, it was a high possibility that there was cancer with metastasis, the reason why and due to the poor response to the treatment, the patient and family agreed to sign for hospice. Hospice came and did an evaluation, and the patient was discharged on hospice to his home. DISPOSITION: The patient was sent home. [employer] SALES REPRESENTATIVE IN THIS CASE: Dr. Higgins, Oncology; Dr. Covarrubias, Nephrology; and Dr. Bañuelos, Pulmonology. CONDITION ON DISCHARGE: At the moment of the discharge, the patient was awake and in some distress secondary to the shortness of breath. DIAGNOSES: 1. Pneumonia. 2. Pleural effusion. 3. Left lung mass, possible cancer with metastasis. 4. Chronic obstructive pulmonary disease. JOB# [id number]
== END 2016-11-04 19:45 | DRG 140 ==
LOC: MSI 01:10
PROVIDERS: ADMIT General Practice; ATTEND General Practice
PROC: 0W9B3ZZ Drainage of Left Pleural Cavity, Percutaneous Approach (ICD-10-PCS; principal; 2016-10-31)
PROC: 5A09357 Assistance with Respiratory Ventilation, Less than 24 Consecutive Hours, Continuous Positive Airway Pressure (ICD-10-PCS; 2016-11-02)
DX: J44.0 Chronic obstructive pulmonary disease with (acute) lower respiratory infection (principal); J96.00 Acute respiratory failure, unspecified whether with hypoxia or hypercapnia; J18.9 Pneumonia, unspecified organism; N17.9 Acute kidney failure, unspecified; J90 Pleural effusion, not elsewhere classified; C34.90 Malignant neoplasm of unspecified part of unspecified bronchus or lung; N18.4 Chronic kidney disease, stage 4 (severe); E11.21 Type 2 diabetes mellitus with diabetic nephropathy; E11.42 Type 2 diabetes mellitus with diabetic polyneuropathy; E11.22 Type 2 diabetes mellitus with diabetic chronic kidney disease; I10 Essential (primary) hypertension; J44.1 Chronic obstructive pulmonary disease with (acute) exacerbation; F17.210 Nicotine dependence, cigarettes, uncomplicated; I12.9 Hypertensive chronic kidney disease with stage 1 through stage 4 chronic kidney disease, or unspecified chronic kidney disease; E78.5 Hyperlipidemia, unspecified; E44.1 Mild protein-calorie malnutrition; Z68.1 Body mass index [BMI] 19.9 or less, adult; E86.0 Dehydration; Z83.3 Family history of diabetes mellitus
CPT/HCPCS: 36415-UA; 36600-90; 71010-TC; 76942-TC; 80048-TC; 80053-TC; 82803-TC; 82945-TC; 82948-90; 83036-90; 83615-TC; 84157-TC; 84443-TC; 85007-TC; 85027-TC; 85610-TC; 87116-90; 87206-90; 88162-90; 88305-90; 89051-TC; 94640; 94660; 94760; J0692; J1030; J1815; J2060; J2543; J2920; J3370; J7030; J7613; Z7610